=== PATIENT | female | born 1990 | race Caucasian/White ===

== ENCOUNTER 2020-10-09 23:46 | Emergency (ER) | payer OTHER, SELFPAY ==
[2020-10-10] VITALS: BP 130/92; PULSE 86; RESP 20; TEMP 37.6; O2SAT 99; BMI 25.3
--- NOTE | 2020-10-10 00:22 | PC.NURSE ---
SEEN BY DR HERNANDEZ. SINUS RHYTHM ON FUR POLISHER WITH OCCASSIONAL PVCS. PLAN FOR COVID TEST AND DISCHARGE
--- NOTE | 2020-10-10 00:23 | ECG_ITS ---
Test Reason : CHEST PAIN Blood Pressure : / mmHG Vent. Rate : 081 BPM Atrial Rate : 081 BPM P-R Int : 122 ms QRS Dur : 088 ms QT Int : 382 ms P-R-T Axes : 051 049 038 degrees QTc Int : 443 ms Normal sinus rhythm Normal ECG When compared with ECG of 13-JAN-2017 10:13, No significant change was found Referred By: Tan Zhao Electronically Signed By:YAMEL SOARES MD
--- NOTE | 2020-10-10 00:24 | ED.ARRPALP ---
HPI - Arrhythmia/Palpitations General Chief Complaint: Arrhythmia/Palpitations Stated Complaint: Palpitations Time Seen by Provider: 10/10/20 00:17 Source: patient Mode of arrival: ambulatory Limitations: no limitations History of Present Illness HPI narrative: patient history of anxiety PTSD her that 1 of her friend positive with COVID patient denies any symptoms felt anxious and felt premature heart beats occasionally without any dizziness or chest pain complaint: palpitations Onset (ago): day(s) (today) Duration: intermittent Related Data Allergies Allergy/AdvReac Type Severity Reaction Status Date / Time ENVIRONMENTAL Allergy Intermediate WATERY Uncoded 10/10/20 00:00 ITCHY EYES AND TRIGERS ASHTMA environmental Allergy Unknown Blurry Uncoded 10/10/20 00:00 Vision Review of Systems Review of Systems: REVIEW OF SYSTEMS: Pertinent positives and negatives are stated above in the history. GEN: no fevers, chills, fatigue HEENT: no nasal congestion, sore throat, ear pain NEURO: no headache, dizziness, focal weakness PULM: no cough, shortness of breath CV: no chest pain, LE edema ABD: no abdominal pain, nausea, vomiting, diarrhea : no dysuria, urgency, frequency SKIN: no rash ROS otherwise negative x 10 PMFSH Past Medical History Medical History Asthma Major depressive disorder PTSD (post-traumatic stress disorder) Physical Exam Vital Signs: Vital Signs: Last Vital Signs Temp 99.7 F 10/10/20 00:00 Pulse 86 10/10/20 00:00 Resp 20 10/10/20 00:00 BP 130/92 H 10/10/20 00:00 Pulse Ox 99 10/10/20 00:00 Body Mass Index 25.3 Appearance: Alert. Oriented X3. No acute distress. anxious Eyes: Pupils equal, round and reactive to light. ENT: Pharynx normal. Neck: Normal inspection. Neck supple. CVS: Normal heart rate and rhythm. Pulses normal. Respiratory: No respiratory distress. Breath sounds normal. Abdomen: Soft and nontender. Skin: Skin warm and dry. Normal skin color. Normal skin turgor. Extremities: No lower extremity edema. Good range of movement Neuro: Oriented X 3. No motor deficit. No sensory deficit. Course Course Course Narrative: cardiac monitoring showed normal sinus rhythm EKG was normal patient with history of anxiety with recent exposure to patient positive with COVID will do the COVID testing that go home MDM - Arrhythmia/Palpitations Differential Diagnosis Differential diagnosis: Likely palpitations and anxiety ECG Data Attestation: I personally reviewed and interpreted this ECG as follows: ECG interpretation date: 10/09/20 Interpretation: normal sinus rhythm rate 81 normal intervals normal axis no acute ischemia impression normal EKG Discharge Plan Discharge Clinical Impression: Ventricular premature beats, Anxiety Patient Disposition: Home, Self-Care Instructions: Anxiety (ED), Premature Atrial Contractions (ED) Additional Instructions: we did the COVID testing new results will come in 2 days somebody will follow up with you. keep social distancing till then
== END 2020-10-10 00:48 | disposition home or self-care (01) ==
LOC: HO.ED 10-10 00:49
PROVIDERS: Emergency Provider Internal Medicine
DX: I49.3 Ventricular premature depolarization (principal); R00.2 Palpitations; F41.1 Generalized anxiety disorder; F43.0 Acute stress reaction; Z20.828 Contact with and (suspected) exposure to other viral communicable diseases
CPT/HCPCS: 93005; 99283; U0003

== ENCOUNTER 2020-12-01 09:55 | Outpatient (REF) | payer OTHER, SELFPAY ==
[2020-12-02 11:33] LABS: BV Int Neg Control Negative (Negative); BV Int Pos Control Positive (Positive)
[2020-12-02 13:52] LABS: C. trachomatis RNA TMA DETECTED (NOT DETECTED); N. gonorrhoeae RNA TMA NOT DETECTED (NOT DETECTED)
== END 2020-12-01 09:56 | disposition home or self-care (01) ==
LOC: HO.LAB 09:55
PROVIDERS: Visit Provider Advanced Practice Midwife
DX: N76.0 Acute vaginitis (principal); B96.89 Other specified bacterial agents as the cause of diseases classified elsewhere; F17.210 Nicotine dependence, cigarettes, uncomplicated; Z20.2 Contact with and (suspected) exposure to infections with a predominantly sexual mode of transmission
CPT/HCPCS: 36415; 87210; 87480; 87491; 87510; 87591; 87660; 99212

== ENCOUNTER 2020-12-13 11:35 | Outpatient (REF) | payer OTHER, SELFPAY ==
[2020-12-14 08:41] LABS: BV Int Neg Control Negative (Negative); BV Int Pos Control Positive (Positive)
[2020-12-15 07:51] LABS: C. trachomatis RNA TMA DETECTED (NOT DETECTED); N. gonorrhoeae RNA TMA NOT DETECTED (NOT DETECTED)
[2020-12-22 13:26] LABS: HPV mRNA E6/E7 DETECTED
[2020-12-26 13:03] LABS: HPV 16 RNA NOT DETECTED
== END 2020-12-13 11:36 | disposition home or self-care (01) ==
LOC: HO.LAB 11:35
PROVIDERS: Visit Provider Advanced Practice Midwife
DX: Z01.419 Encounter for gynecological examination (general) (routine) without abnormal findings (principal); F17.210 Nicotine dependence, cigarettes, uncomplicated; Z20.2 Contact with and (suspected) exposure to infections with a predominantly sexual mode of transmission
CPT/HCPCS: 36415; 87480; 87491; 87510; 87591; 87624; 87625; 87660; 88141; 88142

== ENCOUNTER 2020-12-15 21:49 | Emergency (ER) | payer OTHER, SELFPAY ==
--- NOTE | 2020-12-15 21:55 | ED.URI ---
HPI - URI/Sore Throat General Chief Complaint: Asthma Stated Complaint: Covid symptoms Time Seen by Provider: 12/15/20 21:55 Source: patient Mode of arrival: ambulatory Limitations: no limitations History of Present Illness HPI Narrative: 30 yo female with asthma here with 2 days of URI symptoms and her daughter has COVID, she used all of her rescue inhaler as well MD elicited complaint: cough, sore throat, rhinorrhea and nasal congestion Pertinent past history: asthma Onset (ago): day(s) (2) Consistency: constant Severity: moderate Description of mucous: clear Able to tolerate fluids by mouth: Yes Exacerbating factors: nothing Relieving factors: nothing Context: sick contacts (daughter has COVID) Associated symptoms: chills, myalgias, headache, rhinorrhea, sore throat, cough and shortness of breath Treatments prior to arrival: other (used her INH) Related Data Home Medications Medication Instructions Recorded Confirmed albuterol sulfate 90 mcg/actuation 2 inh INHALATION Q6H PRN 12/01/20 breath activated powder inhaler fluticasone furoate 200 1 inh INHALATION Q24H 12/01/20 mcg-vilanterol 25 mcg/dose inhalation powder montelukast 10 mg tablet 10 mg PO DAILY 12/13/20 Previous Rx's Medication Instructions Recorded metronidazole 0.75 % vaginal gel 1 appful VAGINAL BID 5 Days #70 g 12/01/20 metronidazole 500 mg tablet 500 mg PO BID 7 Days #14 tab 12/07/20 azithromycin 500 mg tablet 1,000 mg PO DAILY 1 Days #2 tab 12/08/20 fluconazole 150 mg tablet 150 mg PO DAILY #1 tab 12/14/20 metronidazole 0.75 % vaginal gel 1 appful VAGINAL BEDTIME 5 Days 12/14/20 #70 g prednisone 40 mg PO DAILY 4 Days #8 tab 12/15/20 Allergies Allergy/AdvReac Type Severity Reaction Status Date / Time ENVIRONMENTAL Allergy Intermediate WATERY Uncoded 10/10/20 00:00 ITCHY EYES AND TRIGERS ASHTMA environmental Allergy Unknown Blurry Uncoded 10/10/20 00:00 Vision Review of Systems Review of Systems: Constitutional : no Fever, positive Chills, positive fatigue, positive Malaise ENT/Mouth : positive sore throat, positive runny nose Eyes: No Discharge Cardiovascular : No Chest Pain, pos SOB Respiratory : pos Cough, No Sputum Gastrointestinal : No Nausea, No Vomiting, No Diarrhea Genitourinary : No Dysuria, No Urinary Frequency Musculoskeletal : positive Myalgia Skin : No rash Neuro :pos Headache All other systems reviewed and are negative [facility], [facility] Past Medical History Attestation statement: The following information was validated with the patient. Medical History Asthma Major depressive disorder PTSD (post-traumatic stress disorder) Surgical History H/O tubal ligation Hx of tonsillectomy Family History Family History Paternal Grandfather Colon cancer Mother HTN (hypertension) Hyperlipidemia Depression Maternal Grandfather Lung cancer Father Asthma Social History Social History Alcohol intake: current Alcohol intake frequency: holidays/special occasions only Smoking Status: Current every day smoker Tobacco Type: Cigar and Cigarette Packs Per Day: 1 Advance Directives: No Advance Directives Information Provided: No Gender identity: female Physical Exam Vital Signs: Vital Signs: Last Vital Signs Temp 98.8 F 12/15/20 22:00 Pulse 90 12/15/20 22:00 Resp 18 12/15/20 22:00 BP 155/82 H 12/15/20 22:00 Pulse Ox 99 12/15/20 22:00 Body Mass Index 22.4 Appearance: Alert. Oriented X3. No acute distress. Eyes: Pupils equal, round and reactive to light. ENT: Pharynx normal. Neck: Normal inspection. Neck supple. CVS: Normal heart rate and rhythm. Pulses normal. Respiratory: No respiratory distress. Breath sounds normal. Abdomen: Soft and nontender. Skin: Skin warm and dry. Normal skin color. Normal skin turgor. Extremities: No lower extremity edema. No calf ttp Neuro: Oriented X 3. No motor deficit. No sensory deficit. Course Course Course Narrative: can be safely DC at this time, likely COVID given exposure and symptoms MDM - URI/Sore Throat MDM Narrative Medical decision making narrative: 30 yo female with asthma here with URI symptoms and states she has had to use her inhaler at this time will obtain COVID swab, CXR, given rescue INH here and start on oral steroids - dispo per results and findings. Lab Data Labs: Lab Results 12/15/20 Range/Units 22:09 Coronavirus (PCR) NEGATIVE (Negative) Influenza Type A (PCR) NEGATIVE (Negative) Influenza Type B (PCR) NEGATIVE (Negative) RSV RNA Qual (PCR) NEGATIVE (Negative) Discharge Plan Discharge Clinical Impression: Acute viral syndrome Patient Disposition: Home, Self-Care Instructions: COVID-19 (Coronavirus Disease 2019) (ED) Additional Instructions: return to ED for any worsening symptoms or concerns YOUR CHEST XRAY AND COVID SWAB WERE NEGATIVE BUT GIVEN YOUR SYMPTOMS AND EXPOSURE YOU LIKELY HAVE COVID WILL TREAT SUCH Prescriptions: New prednisone 20 mg tablet 40 mg PO DAILY 4 Days Qty: 8 RF: 0 No Action metronidazole [Flagyl] 500 mg tablet 500 mg PO BID 7 Days Qty: 14 RF: 0 azithromycin [Zithromax] 500 mg tablet 1,000 mg PO DAILY 1 Days Qty: 2 RF: 0 fluconazole [Diflucan] 150 mg tablet 150 mg PO DAILY Qty: 1 RF: 0 metronidazole [Metrogel Vaginal] 0.75 % gel 1 appful vaginal BEDTIME 5 Days Qty: 70 RF: 0 Breo Ellipta 200-25 mcg/dose blister with device 1 inh inhalation Q24H RF: 0 albuterol sulfate 90 mcg/actuation aerosol powdr breath activated 2 inh inhalation Q6H PRNRF: 0 metronidazole [Metrogel Vaginal] 0.75 % gel 1 appful vaginal BID 5 Days Qty: 70 RF: 5 montelukast 10 mg tablet 10 mg PO DAILY RF: 0 Stand Alone Forms: Work/School Release
[2020-12-15 22:00] VITALS: BP 155/82; PULSE 90; RESP 18; TEMP 37.1; O2SAT 99; BMI 22.4
--- NOTE | 2020-12-15 22:01 | XR_ITS ---
EXAMINATION: XR CHEST CLINICAL INFORMATION: Dyspnea. COMPARISON: None TECHNIQUE: Frontal view of the chest was obtained. FINDINGS: No significant abnormality is noted involving the heart, lungs, mediastinum, bony thorax or soft tissues. XR/XR chest 1V IMPRESSION: No acute cardiopulmonary process.
[2020-12-15] MEDS: predniSONE 20 MG TABLET 40 MG PO (22:11)
[2020-12-15] MEDS: Albuterol Sulfate 90 MCG 8 GM INHALER 2 PUFF INHALE (22:11)
[2020-12-15 23:06] LABS: Influenza A PCR NEGATIVE (Negative); Influenza B PCR NEGATIVE (Negative); Resp Syncy Virus RNA Qual PCR NEGATIVE (Negative); SARS COV2 PCR INHOUSE NEGATIVE (Negative)
[2020-12-15 23:30] VITALS: BP 124/74; PULSE 84; RESP 16; TEMP 36.9; O2SAT 99
== END 2020-12-16 00:05 | disposition home or self-care (01) ==
PROVIDERS: Emergency Provider Emergency Medicine
DX: B34.9 Viral infection, unspecified (principal); Z20.822 Contact with and (suspected) exposure to COVID-19; F17.210 Nicotine dependence, cigarettes, uncomplicated; J45.909 Unspecified asthma, uncomplicated; Z79.899 Other long term (current) drug therapy
CPT/HCPCS: 0241U; 36415; 71045; 99284

== ENCOUNTER 2021-01-01 10:06 | Outpatient (REF) | payer OTHER, SELFPAY | END 2021-01-01 10:07 | disposition home or self-care (01) | LOC: HO.LAB 10:06 | PROVIDERS: Visit Provider Obstetrics & Gynecology | DX: N87.9 Dysplasia of cervix uteri, unspecified (principal) | CPT/HCPCS: 57454; 88305; 88341; 88342; 88344; 88360 ==

== ENCOUNTER → 2021-01-09 11:46 | Outpatient (BNVA) | payer OTHER, SELFPAY | PROVIDERS: Visit Provider Obstetrics & Gynecology ==

== ENCOUNTER 2021-01-23 23:19 | Emergency (ER) | payer OTHER, SELFPAY ==
[2021-01-23 23:56] VITALS: BP 133/77; PULSE 85; RESP 16; TEMP 36.7; O2SAT 99; BMI 22.1
--- NOTE | 2021-01-24 00:01 | PC.NURSE ---
at bedside for primary eval.
--- NOTE | 2021-01-24 00:15 | ED_ITS ---
HPI - Skin/Abscess/Foreign Bdy General Chief complaint: Skin/Abscess/Foreign Body Stated complaint: Abscess Time Seen by Provider: 01/23/21 23:50 Source: patient Mode of arrival: ambulatory Limitations: no limitations History of Present Illness HPI narrative: Patient comes emergency room complaining of an abscess in the left labia. Patient states she started feeling some discomfort intermitently since october and has been having multiple abcesses in the same area and has been popping them. The last 3 days, pt states that she noticed it getting bigger warm, tender, and increased labial swelling, pt has been trying to pop this one without success. Patient denies fever or chills. No vaginal discharge, no fever chills. Patient states that over last few months, she has had several similar abscesses around that same area, she is usually able to pop them herself by applying a lot of pressure. Patient popped an abcess yesterday that was above the affected area. Last week she popped an abcess in the per ineum on the left side as well. Pt states that she has been trying to pop this abcess by applying significant pressure. Patient states that she does not suspect having any exposure to STDs Related Data Home Medications Medication Instructions Recorded Confirmed albuterol sulfate 90 mcg/actuation 2 inh INHALATION Q6H PRN 12/01/20 breath activated powder inhaler fluticasone furoate 200 1 inh INHALATION Q24H 12/01/20 mcg-vilanterol 25 mcg/dose inhalation powder montelukast 10 mg tablet 10 mg PO DAILY 12/13/20 Previous Rx's Medication Instructions Recorded metronidazole 0.75 % vaginal gel 1 appful VAGINAL BID 5 Days #70 g 12/01/20 metronidazole 500 mg tablet 500 mg PO BID 7 Days #14 tab 12/07/20 azithromycin 500 mg tablet 1,000 mg PO DAILY 1 Days #2 tab 12/08/20 fluconazole 150 mg tablet 150 mg PO DAILY #1 tab 12/14/20 metronidazole 0.75 % vaginal gel 1 appful VAGINAL BEDTIME 5 Days 12/14/20 #70 g prednisone 40 mg PO DAILY 4 Days #8 tab 12/15/20 cephalexin [Keflex] 750 mg PO BID #14 cap 01/24/21 doxycycline hyclate 100 mg PO BID #14 cap 01/24/21 tramadol 50 mg PO BID PRN #7 tab 01/24/21 Allergies Allergy/AdvReac Type Severity Reaction Status Date / Time ENVIRONMENTAL Allergy Intermediate WATERY Uncoded 01/09/21 11:48 ITCHY EYES AND TRIGERS ASHTMA environmental Allergy Unknown Blurry Uncoded 01/09/21 11:48 Vision Review of Systems Review of Systems: Constitutional : No Weight loss, No Fever, No Chills, No Night Sweats, No Fatigue, No Malaise ENT/Mouth : No Hearing loss, No Ear Pain, No Nasal Congestion, No Sinus Pain, No Hoarseness, No sore throat, No Rhinorrhea, No Swallowing Difficulty Eyes: No Eye Pain, No Swelling, No Redness, No Foreign Body, No Discharge, No Vision Changes Cardiovascular : No Chest Pain, No SOB, No Dyspnea on Exertion, No Orthopnea, No Edema, No Palpitations Respiratory : No Cough, No Sputum, No Wheezing, No Smoke Exposure, No Dyspnea Gastrointestinal : No Nausea, No Vomiting, No Diarrhea, No Constipation, No abdominal Pain, No Hematochezia, No Melena Genitourinary : no irregular bleeding, No Dysuria, No Urinary Frequency, No Hematuria, No Urinary Incontinence, No Urgency, No Flank Pain, No Urinary Flow Changes, No Hesitancy. Complaining of a growing abscess in her left labia Musculoskeletal : No joint pain, No Myalgias, No Joint Swelling Skin : Over the last weeks, reporting multiple abscesses the patient has applied pressure and popped all on the left side Neuro : No Weakness, No Numbness, No Paresthesias, No Loss of Consciousness, No Dizziness, No Headache Psych : No Anxiety/Panic, No Depression, No SI/HI/AH/VH, No Social Issues, Heme/Lymph: No Bruising, No Bleeding,No Lymphadenopathy Endocrine : No Polyuria, No Polydipsia, No Temperature Intolerance PMFSH Past Medical History Medical History Asthma Major depressive disorder PTSD (post-traumatic stress disorder) Surgical History H/O tubal ligation Hx of tonsillectomy Family History Family History Paternal Grandfather Colon cancer Mother HTN (hypertension) Hyperlipidemia Depression Maternal Grandfather Lung cancer Father Asthma Social History Social History Alcohol intake: unknown Smoking Status: Smoker, status unknown Tobacco Type: Cigar and Cigarette Packs Per Day: 1 Advance Directives: No Gender identity: female Physical Exam Vital Signs: Vital Signs: Last Vital Signs Temp 98.0 F 01/23/21 23:56 Pulse 78 01/24/21 01:01 Resp 16 01/24/21 01:01 BP 139/94 H 01/24/21 01:01 Pulse Ox 99 01/24/21 01:01 Body Mass Index 22.1 Appearance: Alert. Oriented X3. No acute distress. Eyes: Pupils equal, round and reactive to light. ENT: Pharynx normal. Neck: Normal inspection. Neck supple. No lymph nodes noted. No crepitus CVS: Normal heart rate and rhythm. Pulses normal. Normal S1 and S2 Respiratory: No respiratory distress. Breath sounds normal. No Wheezing. No rales Abdomen: Soft and nontender. No rigidity. No distention. good BS x4 : induration and mild redness in the superior and exterior aspect of the labia majora, not a Bartholin's cyst. On bedside ultrasound, there is 0.5 cm abscess no vascularity on doppler Skin: Skin warm and dry. see above Extremities: No lower extremity edema. No Lacerations. No Rash Neuro: Oriented X 3. No motor deficit. No sensory deficit. Moving all exterm ities. No slurred speech. Course Course Course Narrative: I discussed with the patient that given the size of the abscess, at this time we can start her on antibiotics, and have her follow up with her PCP or obgyn. If we do an I&D, it is unlikely that we will get any significant drainage out. Patient stated that she wants the needle aspiration done. I discussed with the patient that we could attempt draining it with a needle. The affected area was injected with 2% lidocaine, 1 mL. Right over the incision site, an 20 gauge needle was used for aspiration, no fluid obtained. Procedures Abscess I/D Site: other (Left labia) Side (if applicable): left Local Anesthetic: lidocaine 2% Amount of anesthesia used (mL): 1 Technique: needle aspiration Amount of fluid expressed (mL): 0 Sent for culture/gram staining?: No Irrigation: No Packing used?: none Complications: other Discharge Plan Discharge Clinical Impression: Labial abscess Patient Disposition: Home, Self-Care Instructions: Abscess (ED) Additional Instructions: Please follow-up with your primary care physician tomorrow. If you have any worsening or new symptoms, please return to the emergency room or call 911 Prescriptions: New doxycycline hyclate 100 mg capsule 100 mg PO BID Qty: 14 RF: 0 cephalexin [Keflex] 750 mg capsule 750 mg PO BID Qty: 14 RF: 0 tramadol 50 mg tablet 50 mg PO BID PRN (Reason: pain) Qty: 7 RF: 0 No Action metronidazole [Flagyl] 500 mg tablet 500 mg PO BID 7 Days Qty: 14 RF: 0 azithromycin [Zithromax] 500 mg tablet 1,000 mg PO DAILY 1 Days Qty: 2 RF: 0 fluconazole [Diflucan] 150 mg tablet 150 mg PO DAILY Qty: 1 RF: 0 metronidazole [Metrogel Vaginal] 0.75 % gel 1 appful vaginal BEDTIME 5 Days Qty: 70 RF: 0 prednisone 20 mg tablet 40 mg PO DAILY 4 Days Qty: 8 RF: 0 Breo Ellipta 200-25 mcg/dose blister with device 1 inh inhalation Q24H RF: 0 albuterol sulfate 90 mcg/actuation aerosol powdr breath activated 2 inh inhalation Q6H PRNRF: 0 metronidazole [Metrogel Vaginal] 0.75 % gel 1 appful vaginal BID 5 Days Qty: 70 RF: 5 montelukast 10 mg tablet 10 mg PO DAILY RF: 0 Interventions: ED Discharge Assessment Last Done: 01/24/21 01:30 Discharge Date/Time: 01/24/21 01:44
[2021-01-24] MEDS: Lidocaine HCl 2 % MPF 5 ML VIAL INFILTRATI (00:38)
--- NOTE | 2021-01-24 00:39 | PC.NURSE ---
MD at bedside with U/S, trying to suction abscess. Pt tolerating the procedure well, aware of plan to DC home with ABX.
[2021-01-24] MEDS: cephALEXin 500 MG CAPSULE PO (01:00)
[2021-01-24 01:01] VITALS: BP 139/94; PULSE 78; RESP 16; O2SAT 99
[2021-01-24] MEDS: traMADoL HCL 50 MG TABLET PO (01:05)
--- NOTE | 2021-01-24 01:06 | PC.NURSE ---
Medicated per MAR. VSS. Awaiting DC paperwork.
== END 2021-01-24 01:44 | disposition home or self-care (01) ==
PROVIDERS: Emergency Provider Emergency Medicine
DX: N76.4 Abscess of vulva (principal); Z79.899 Other long term (current) drug therapy; F17.210 Nicotine dependence, cigarettes, uncomplicated; Z71.6 Tobacco abuse counseling
CPT/HCPCS: 56405; 99284

== ENCOUNTER 2021-01-26 02:43 | Emergency (ER) | payer OTHER, SELFPAY ==
[2021-01-26 02:52] VITALS: BP 120/80; PULSE 85; RESP 14; TEMP 36.5; O2SAT 100; BMI 22.1
--- NOTE | 2021-01-26 03:35 | ED_ITS ---
HPI - General Adult General Chief complaint: Upper Respiratory Symptoms Stated complaint: Sore Throat Time Seen by Provider: 01/26/21 03:24 Source: patient Mode of arrival: ambulatory Limitations: no limitations History of Present Illness HPI narrative: 30-year-old female who presents emergency department for evaluation of a sore throat. She states that her symptoms began yesterday morning around 6:00 a.m.. She states that the pain persisted throughout the day yesterday and got worse this morning. She states the pain is a constant, sharp pain which is worse with eating and with swallowing. The pain is moderate to severe in intensity. She states that she has had occasional cough and occasional rhinorrhea. She denied fever, chills, chest pain, shortness of breath or abdominal pain. She states that she looked in her mouth and noticed white patches on the back of her mouth. She states that she has gotten strep throat frequently in the past and she believe she has strep throat again. Related Data Home Medications Medication Instructions Recorded Confirmed albuterol sulfate 90 mcg/actuation 2 inh INHALATION Q6H PRN 12/01/20 breath activated powder inhaler fluticasone furoate 200 1 inh INHALATION Q24H 12/01/20 mcg-vilanterol 25 mcg/dose inhalation powder montelukast 10 mg tablet 10 mg PO DAILY 12/13/20 Previous Rx's Medication Instructions Recorded metronidazole 0.75 % vaginal gel 1 appful VAGINAL BID 5 Days #70 g 12/01/20 metronidazole 500 mg tablet 500 mg PO BID 7 Days #14 tab 12/07/20 azithromycin 500 mg tablet 1,000 mg PO DAILY 1 Days #2 tab 12/08/20 fluconazole 150 mg tablet 150 mg PO DAILY #1 tab 12/14/20 metronidazole 0.75 % vaginal gel 1 appful VAGINAL BEDTIME 5 Days 12/14/20 #70 g prednisone 40 mg PO DAILY 4 Days #8 tab 12/15/20 cephalexin [Keflex] 750 mg PO BID #14 cap 01/24/21 doxycycline hyclate 100 mg PO BID #14 cap 01/24/21 tramadol 50 mg PO BID PRN #7 tab 01/24/21 penicillin V potassium 500 mg PO TID 10 Days #30 tab 01/26/21 Allergies Allergy/AdvReac Type Severity Reaction Status Date / Time ENVIRONMENTAL Allergy Intermediate WATERY Uncoded 01/09/21 11:48 ITCHY EYES AND TRIGERS ASHTMA environmental Allergy Unknown Blurry Uncoded 01/09/21 11:48 Vision Review of Systems Review of Systems: Yes all other systems are reviewed and are negative Neurologic: Denies Abnormal speech present [facility] Past Medical History [facility] Narrative: The patient smokes 1/2 pack of cigarettes per day x8 years, she states she rarely drinks alcohol, she denies drug use. Medical History Asthma Major depressive disorder PTSD (post-traumatic stress disorder) Surgical History H/O tubal ligation Hx of tonsillectomy Family History Family History Paternal Grandfather Colon cancer Mother HTN (hypertension) Hyperlipidemia Depression Maternal Grandfather Lung cancer Father Asthma Social History Social History Alcohol intake: unknown Smoking Status: Smoker, status unknown Tobacco Type: Cigar and Cigarette Packs Per Day: 1 Advance Directives: No Gender identity: female Physical Exam Vital Signs: Vital Signs: Last Vital Signs Temp 97.7 F 01/26/21 02:52 Pulse 85 01/26/21 02:52 Resp 14 01/26/21 02:52 BP 120/80 01/26/21 02:52 Pulse Ox 100 01/26/21 02:52 Body Mass Index 22.1 Const: General: cooperative and healthy appearing Orientation/consciousness: oriented to person and oriented to place Limitations: no limitations HENMT: Head: Yes normal to inspection, Yes normocephalic and Yes atraumatic Ears: external ears normal General nose exam: Normal external nose present Face and sinus: Yes normal facial exam Mouth: Normal oral and palatal mucosa present Throat: Yes tonsils normal, Yes uvula midline, No peritonsillar mass and Yes posterior oropharynx abnormal (Posterior exudates) Eyes: Periorbital: periorbital findings normal Eyelids: Yes eyelids normal Conjunctivae: conjunctivae normal Sclerae: sclerae normal Corneas: corneas normal Pupils: Equal, round and reactive pupils present Direct Ophthalmoscopy: normal light reflex Neck: Neck: Yes full ROM, Yes no lymphadenopathy, Yes no meningeal signs, Yes trachea midline and Yes supple Chest: Chest palpation & inspection: normal inspection of the chest and normal palpation of entire chest wall Resp: Effort & Inspection: normal respiratory effort and able to speak in complete sentences Auscultation: clear to auscultation bilaterally Cardio: Rate: regular rate Rhythm: regular rhythm Heart sounds: S1 normal heart sound present, S2 normal heart sound present and no murmurs GI: Inspection: Yes normal to inspection Palpation (GI): Soft to palpation, nontender, no guarding, not rigid and No hepatosplenomegaly present : General: Yes no CVA tenderness Back/Spine/Pelvis: Back: no CVA tenderness Cervical Spine: normal cervical lordosis Thoracic/Lumbar Spine: thoracic and lumbar spine normal to inspection Skin: Lesions: no lesions Rashes: no rashes Wounds: no wounds Neuro: General: oriented to person, oriented to place and no meningeal signs Cranial nerves: Yes Equal, round and reactive pupils present Cognition (Neuro): normal cognition Speech: No Abnormal speech present Motor exam (neuro): 5/5 motor strength present throughout Extrem: General: Yes normal to inspection and Yes full ROM Psych: Appearance: well kempt Mental Status: mental status grossly normal Speech and movement: Normal speech and movement present Affect: normal affect Attitude: cooperative Thought process: Normal thought process present Thought content: Normal thought content present Course Course Course Narrative: 30-year-old female who presents emergency department for evaluation of sore throat which began yesterday morning and got progressively worse. Patient's physical examination did reveal posterior exudates of was was unremarkable. The patient's presentation is consistent with acute pharyngitis most likely caused by streptococcal infection. I offered testing verses treatment with no testing at this time the patient wants to be treated and does not want a rapid strep test or throat culture. The patient was started on penicillin 500 mg 3 times a day for 10 days, she was advised to take ibuprofen Tylenol for pain. She was given her 1st dose of penicillin 500 mg orally in the emergency department and ibuprofen 600 mg orally for her pain. She was given verbal and printed instructions discharged home. Discharge Plan Discharge Clinical Impression: Acute streptococcal pharyngitis Patient Disposition: Home, Self-Care Instructions: Strep Throat (ED) Additional Instructions: Your presentation and examination are consistent with strep throat. Take penicillin 500 mg pills, 1 pill 3 times a day for 10 days. Make sure you complete the entire 10 days. Take ibuprofen 200 mg pills, 3 pills every 6 hours as needed for pain. Take Tylenol (acetaminophen) 500 mg pills, 2 pills every 4 to 6 hours as needed for pain. Follow-up with your doctor in 2 days. Please return to the emergency department if your symptoms get worse or if you develop any symptoms that are concerning to you. Prescriptions: New penicillin V potassium 500 mg tablet 500 mg PO TID 10 Days Qty: 30 RF: 0 No Action metronidazole [Flagyl] 500 mg tablet 500 mg PO BID 7 Days Qty: 14 RF: 0 azithromycin [Zithromax] 500 mg tablet 1,000 mg PO DAILY 1 Days Qty: 2 RF: 0 fluconazole [Diflucan] 150 mg tablet 150 mg PO DAILY Qty: 1 RF: 0 metronidazole [Metrogel Vaginal] 0.75 % gel 1 appful vaginal BEDTIME 5 Days Qty: 70 RF: 0 doxycycline hyclate 100 mg capsule 100 mg PO BID Qty: 14 RF: 0 cephalexin [Keflex] 750 mg capsule 750 mg PO BID Qty: 14 RF: 0 tramadol 50 mg tablet 50 mg PO BID PRN (Reason: pain) Qty: 7 RF: 0 prednisone 20 mg tablet 40 mg PO DAILY 4 Days Qty: 8 RF: 0 Breo Ellipta 200-25 mcg/dose blister with device 1 inh inhalation Q24H RF: 0 albuterol sulfate 90 mcg/actuation aerosol powdr breath activated 2 inh inhalation Q6H PRNRF: 0 metronidazole [Metrogel Vaginal] 0.75 % gel 1 appful vaginal BID 5 Days Qty: 70 RF: 5 montelukast 10 mg tablet 10 mg PO DAILY RF: 0
[2021-01-26] MEDS: Penicillin V Potassium 250 MG TABLET 500 MG PO (03:38)
[2021-01-26] MEDS: Ibuprofen 600 MG TABLET PO (03:38)
== END 2021-01-26 03:48 | disposition home or self-care (01) ==
PROVIDERS: Emergency Provider Emergency Medicine Emergency Medical Services
DX: J02.0 Streptococcal pharyngitis (principal); J45.909 Unspecified asthma, uncomplicated; F17.210 Nicotine dependence, cigarettes, uncomplicated
CPT/HCPCS: 99283

== ENCOUNTER → 2021-02-06 10:41 | Outpatient (BNVA) | payer OTHER, SELFPAY | PROVIDERS: Visit Provider Obstetrics & Gynecology | DX: D06.9 Carcinoma in situ of cervix, unspecified (principal) | CPT/HCPCS: 99212 ==

== ENCOUNTER 2021-02-08 08:05 | Day surgery (SDC) | payer OTHER, SELFPAY ==
[2021-02-01 14:12] VITALS: BMI 22.1
--- NOTE | 2021-02-07 09:11 | HO.ANESPROP2 ---
Documented by User: Ban Dockery 02/07/21 09:12 HPI - Anesthesia Eval Consult details Narrative: 30yo F for Cold Knife Cone Procedure PMFSH Active Problems Active Problems: All Active Problems (Updated 02/01/21 @ 14:13 by Lisa Allen) Bacterial vaginosis (Acute) Potential exposure to STD (Acute) Well woman exam with routine gynecological exam (Acute) Chlamydia infection (Acute) Past Medical History Medical History Asthma Cervical intraepithelial neoplasia grade III with severe dysplasia History of strep sore throat Major depressive disorder PTSD (post-traumatic stress disorder) Family History Family History Paternal Grandfather Colon cancer Mother HTN (hypertension) Hyperlipidemia Depression Maternal Grandfather Lung cancer Father Asthma Surgical History Surgical History H/O tubal ligation Hx of tonsillectomy Social History Social History Alcohol intake: unknown Smoking Status: Smoker, status unknown Tobacco Type: Cigar and Cigarette Packs Per Day: 1 Advance Directives Information Provided: No Gender identity: female Meds Allergies Allergy/AdvReac Type Severity Reaction Status Date / Time ENVIRONMENTAL Allergy Intermediate WATERY Uncoded 02/06/21 11:08 ITCHY EYES AND TRIGERS ASHTMA Home Medications Medication Instructions Recorded Confirmed Last Taken Type albuterol sulfate 90 mcg/actuation 2 inh INHALATION Q6H PRN 12/01/20 02/01/21 Unknown History breath activated powder inhaler fluticasone furoate 200 1 inh INHALATION Q24H 12/01/20 02/01/21 Unknown History mcg-vilanterol 25 mcg/dose inhalation powder montelukast 10 mg tablet 10 mg PO DAILY 12/13/20 02/01/21 Unknown History Exam Exam Date and Time: February 07, 2021 0911 Height,Weight and Vital Signs: Height 5 ft 3 in Weight 56.699 kg Narrative Narrative: EKG 09/2020 Vent. Rate : 081 BPM Atrial Rate : 081 BPM P-R Int : 122 ms QRS Dur : 088 ms QT Int : 382 ms P-R-T Axes : 051 049 038 degrees QTc Int : 443 ms Normal sinus rhythm Normal ECG When compared with ECG of 13-JAN-2017 10:13, No significant change was found Assessment and Plan Assessment Anesthesia Assessment: Chart Reviewed Documented by User: Anna Toure 02/08/21 10:05 PMFSH Past Medical History Medical History Asthma Cervical intraepithelial neoplasia grade III with severe dysplasia History of strep sore throat Major depressive disorder PTSD (post-traumatic stress disorder) Family History Family History Paternal Grandfather Colon cancer Mother HTN (hypertension) Hyperlipidemia Depression Maternal Grandfather Lung cancer Father Asthma Surgical History Surgical History H/O tubal ligation Hx of tonsillectomy Social History Social History Alcohol intake: unknown Smoking Status: Smoker, status unknown Tobacco Type: Cigar and Cigarette Packs Per Day: 1 Advance Directives Information Provided: No Gender identity: female Meds Allergies Allergy/AdvReac Type Severity Reaction Status Date / Time ENVIRONMENTAL Allergy Intermediate WATERY Uncoded 02/06/21 11:08 ITCHY EYES AND TRIGERS ASHTMA Home Medications Medication Instructions Recorded Confirmed Last Taken Type albuterol sulfate 90 mcg/actuation 2 inh INHALATION Q6H PRN 12/01/20 02/01/21 Unknown History breath activated powder inhaler fluticasone furoate 200 1 inh INHALATION Q24H 12/01/20 02/01/21 Unknown History mcg-vilanterol 25 mcg/dose inhalation powder montelukast 10 mg tablet 10 mg PO DAILY 12/13/20 02/01/21 Unknown History Exam Airway Mallampati Class: I TM Dist: >3cm Neck ROM: Full Loose/Missing/Broken Teeth: No Heart: RRR Lungs: CTA Assessment and Plan Assessment Anesthesia Assessment: Anesthesia Plan Discussed and Chart Reviewed Final Anesthetic Review NPO: Yes ASA Class: II Final Preanesthetic Review: Meds/Allgs Chart Reviewed, Consent Obtained/Reviewed and Anes Risks/Benef Reviewed Patient Risk: Low Procedure Risk: Low Anesthetic Plan Anesthetic Plan: GA Disposition: Standard PACU
[2021-02-08] VITALS (27 sets, daily range): BP systolic 114–139; BP diastolic 52–93; PULSE 67–104; RESP 8–22; TEMP 36.2–36.9; O2SAT 98–100; BMI 22.3
[2021-02-08] MEDS: Lactated Ringers 1,000 ML 100 ML IVCONT (08:38)
--- NOTE | 2021-02-08 08:58 | MHC.SHP ---
Pre-Procedural Eval Section A The patient is an INPATIENT: No Changes since office visit: No Cold of Flu in the past 2 weeks, No New Medical Problems, No Changes in Medication and No Patient answered all questions The History & Physical has been completed within 30 days and I have reviewed it.: Yes Section B Chief Complaint: HSIL Allergies: Allergies Allergy/AdvReac Type Severity Reaction Status Date / Time ENVIRONMENTAL Allergy Intermediate WATERY Uncoded 02/06/21 11:08 ITCHY EYES AND TRIGERS ASHTMA Plan I have reviewed the history and physical and performed a pertinent physical examination on my patient. No changes have occurred unless specified.
[2021-02-08 09:34] LABS: HCG Quantitative < 2 mIU/mL
--- NOTE | 2021-02-08 11:22 | P.OP_ITS ---
Operative Note Operative Note Date of Service: 02/08/21 Narrative: Ms. Toni Smith is a 30 year old with severe cervical dysplasia (TEJA 2-3) on endocervical curettage at time of her colposcopy done for HSIL, HR HPV+ (16/18/45 negative) pap smear. She presents today for cold knife cone biopsy. Surgical Risks: The patient was informed of the risks and benefits of a cold knife cone biopsy. Risks included but were not limited to bleeding, infection, injury to the vulva, vagina, or cervix, and uterus with possible need for further surgery; increased risk of delivery in any future . The patient expressed understanding of the risks involved, all questions were answered, and the patient consented to the procedure. She has previously had a bilateral tubal ligation as she desires no further childbearing. The patient was taken to the operating room where a time out was confirmed to confirm correct patient and correct procedure. Adequate general anesthesia was established. The patient was then positioned on the operating table in the dorsal lithotomy position with her legs supported using stirrups. All pressure points were padded and a warm blanket was placed to maintain control of core body temperature. The patient voided just prior to the procedure. A bivalve speculum was then inserted into the vagina. The anterior lip of the cervix was visualized and grasped using a single tooth tenaculum. 24 u of 0.5 U/mL vasopressin was injected circumferentially in the cervix just lateral to the planned biopsy. The scalpel was then used circumferentially with a sawing motion to take a cone biopsy approximately 3cm deep. The specimen was tagged with suture at 12 o'clock. The specimen was sent to pathology. Bovie electrocautery was then used covering all cut surfaces to achieve hemostasis. Monsel's solution was then applied. Minimal blood loss was noted. The single- tooth tenaculum was removed from the anterior lip of the cervix and hemostasis was also noted at the tenaculum puncture sites. Sterile packing was soaked in monsel's solution and packed into the cervix, leaving a tail hanging out of the vagina for easy removal. Good hemostasis was noted. The speculum was then removed from the vagina. At the end of the procedure, all needle, sponge, and instrument counts were noted to be correct x2. The patient was transferred to the recovery room in stable condition.
[2021-02-08] MEDS: oxyCODONE HCl Immed Release 5 MG TABLET 10 MG PO (11:36)
[2021-02-08] MEDS: fentaNYL citrate/PF 100 MCG/2 ML VIAL 50 MCG IVPUSH ×4 (11:41→12:10)
[2021-02-08 14:43] LABS: Hematocrit 34.3 % (37-47); Hemoglobin 11.2 g/dl (12.0-16.0); Mean Corpuscular HGB Conc 32.7 g/dl (31.0-35.0); Mean Corpuscular Hemoglobin 29.6 pg (27.0-33.0); Mean Corpuscular Volume 90.7 fL (80-98); Mean Platelet Volume 10.7 fL (9.4-12.3); Platelet Count 181 X10*3/uL (160-400); Red Blood Count 3.78 X10*6/uL (4.20-5.50); Red Cell Distribution Width 13.2 % (11.0-16.0); White Blood Count 9.7 X10*3/uL (4.8-10.8)
[2021-02-08 14:47] LABS: Hematocrit 34.3 % (37-47); Hemoglobin 11.2 g/dl (12.0-16.0); Mean Corpuscular HGB Conc 32.7 g/dl (31.0-35.0); Mean Corpuscular Hemoglobin 29.6 pg (27.0-33.0); Mean Corpuscular Volume 90.7 fL (80-98); Mean Platelet Volume 10.7 fL (9.4-12.3); Platelet Count 181 X10*3/uL (160-400); Red Blood Count 3.78 X10*6/uL (4.20-5.50); Red Cell Distribution Width 13.2 % (11.0-16.0); White Blood Count 9.7 X10*3/uL (4.8-10.8)
--- NOTE | 2021-02-08 15:29 | W.PM.OPN ---
Operative Note Operative Note Date of Service: 02/08/21 Narrative: Ms. Toni Smith is a 30yo on POD#0 s/p cold knife cone biopsy who was found to be soaking her alan pads in PACU and was taken back to the OR for exam under anesthesia. The patient was taken to the operating room where a time out was confirmed to confirm correct patient and correct procedure. Adequate general anesthesia was established. The monsel's soaked packing previously placed in the vagina and 195cc of blood clot was manually evacuated from the vagina. The patient was then positioned on the operating table in the dorsal lithotomy position with her legs supported using stirrups. All pressure points were padded and a Alejandrina hugger was placed to maintain control of core body temperature. The patient was then prepped and draped in the usual sterile fashion. A weighted speculum was then inserted into the vagina and the cervix visualized. Bleeding was noted to be brisk from the posterior cervix. Suction was used to evacuate blood and bovie electrocautery was used to achieve hemostasis. After using the bovie electrocautery, no active bleeding was noted, even after waiting a couple of minutes. Monsel's solution was then applied with continued hemostasis noted. 20cc 2% lidocaine was then injected as a paracervical block at 4 and 7 o'clock. Bleeding was then again noted and bovie electrocautery again used until good hemostasis was noted. Monsel's solution was applied again. Good hemostasis was noted. Surgicel was applied and good hemostasis was observed for a full three minutes before the procedure was felt to be complete. The speculum was removed from the vagina. At the end of the procedure, all needle, sponge, and instrument counts were noted to be correct x2. The patient was transferred to the recovery room in stable condition.
--- NOTE | 2021-02-08 16:58 | PC.NURSE ---
[id number] dr. harvey contacted question whether post procedure cbc is required for h/h. no new orders per md.
== END 2021-02-08 17:35 | disposition home or self-care (01) ==
PROVIDERS: Anesthesiology; Visit Provider Obstetrics & Gynecology
PROC: 0UBC7ZZ Excision of Cervix, Via Natural or Artificial Opening (ICD-10-PCS; CPT 57522; principal; 2021-02-08 09:40)
PROC: (CPT 58120; principal; 2021-02-08 13:00)
DX: D06.9 Carcinoma in situ of cervix, unspecified (principal); Z98.51 Tubal ligation status; N99.820 Postprocedural hemorrhage of a genitourinary system organ or structure following a genitourinary system procedure; Y84.8 Other medical procedures as the cause of abnormal reaction of the patient, or of later complication, without mention of misadventure at the time of the procedure; Y76.8 Miscellaneous obstetric and gynecological devices associated with adverse incidents, not elsewhere classified; Y92.238 Other place in hospital as the place of occurrence of the external cause
CPT/HCPCS: 57520; 57510; 36415; 84702; 85027; 86850; 86900; 88305; 88307; J0131; J1100; J2250; J2405; J3010

== ENCOUNTER 2021-03-08 02:56 | Emergency (ER) | payer OTHER, SELFPAY ==
--- NOTE | 2021-03-08 03:11 | ED_ITS ---
HPI - Asthma General Chief Complaint: Asthma Stated Complaint: Asthma/Sob Time Seen by Provider: 03/08/21 03:10 Source: patient Mode of arrival: ambulatory Limitations: no limitations History of Present Illness HPI Narrative: asthma worsening over 2 weeks after her Breo was not Rx by pharmacy due to insurance issues using her INH with no relief, cannot remember the last time she was on prednisone complaint: asthma attack Onset (ago): week(s) (2) Severity: moderate, similar to prior and worse than usual Context: ran out of meds Associated symptoms: dry cough Asthma History: childhood onset Treatments Prior to Arrival: inhaled bronchodilator Related Data Home Medications Medication Instructions Recorded Confirmed albuterol sulfate 90 mcg/actuation 2 inh INHALATION Q6H PRN 12/01/20 02/01/21 breath activated powder inhaler fluticasone furoate 200 1 inh INHALATION Q24H 12/01/20 02/01/21 mcg-vilanterol 25 mcg/dose inhalation powder montelukast 10 mg tablet 10 mg PO DAILY 12/13/20 02/01/21 Previous Rx's Medication Instructions Recorded metronidazole 0.75 % vaginal gel 1 appful VAGINAL BID 5 Days #70 g 12/01/20 metronidazole 500 mg tablet 500 mg PO BID 7 Days #14 tab 12/07/20 azithromycin 500 mg tablet 1,000 mg PO DAILY 1 Days #2 tab 12/08/20 fluconazole 150 mg tablet 150 mg PO DAILY #1 tab 12/14/20 metronidazole 0.75 % vaginal gel 1 appful VAGINAL BEDTIME 5 Days 12/14/20 #70 g prednisone 40 mg PO DAILY 4 Days #8 tab 12/15/20 cephalexin [Keflex] 750 mg PO BID #14 cap 01/24/21 doxycycline hyclate 100 mg PO BID #14 cap 01/24/21 tramadol 50 mg PO BID PRN #7 tab 01/24/21 penicillin V potassium 500 mg PO TID 10 Days #30 tab 01/26/21 acetaminophen [Tylenol 8 Hour] 650 mg PO Q8H PRN #90 tab 02/07/21 ibuprofen 800 mg PO Q8H PRN #90 tab 02/07/21 oxycodone 5 mg capsule 5 mg PO Q6H PRN #20 cap 02/09/21 prednisone 40 mg PO DAILY 5 Days #10 tab 03/08/21 Allergies Allergy/AdvReac Type Severity Reaction Status Date / Time ENVIRONMENTAL Allergy Intermediate WATERY Uncoded 02/06/21 11:08 ITCHY EYES AND TRIGERS ASHTMA Review of Systems Review of Systems: Constitutional : No Fever, No Chills ENT/Mouth : No sore throat, No Rhinorrhea, No Swallowing Difficulty Eyes: No Eye Pain, No Swelling, No Redness Cardiovascular : No Chest Pain, positive SOB, No Orthopnea, no Edema Respiratory : pos Cough, No Sputum, pos Wheezing, positive dyspnea Gastrointestinal : No Nausea, No Vomiting, No Diarrhea, No abdominal Pain, No Hematochezia, No Melena Genitourinary : No Dysuria, No Urinary Frequency, No Hematuria Musculoskeletal : No joint pain, No Myalgias Skin : No Skin Lesions, No rash Neuro : No Weakness, No Numbness, No Dizziness, No Headache Psych : No Anxiety/Panic, No Depression Heme/Lymph: No Bruising, No Lymphadenopathy Endocrine : No Polyuria, No Polydipsia All other systems reviewed and are negative [facility] Past Medical History Attestation statement: The following information was validated with the patient. Medical History Asthma Cervical intraepithelial neoplasia grade III with severe dysplasia History of strep sore throat Major depressive disorder PTSD (post-traumatic stress disorder) Surgical History H/O tubal ligation Hx of tonsillectomy Family History Family History Paternal Grandfather Colon cancer Mother HTN (hypertension) Hyperlipidemia Depression Maternal Grandfather Lung cancer Father Asthma Social History Social History Alcohol intake: unknown Smoking Status: Smoker, status unknown Tobacco Type: Cigar and Cigarette Packs Per Day: 1 Advance Directives: No Gender identity: female Physical Exam Vital Signs: Vital Signs: Last Vital Signs Temp 98.4 F 03/08/21 03:13 Pulse 118 H 03/08/21 06:15 Resp 20 03/08/21 06:15 BP 112/59 L 03/08/21 06:15 Pulse Ox 96 03/08/21 06:15 Body Mass Index 22.1 Appearance: Alert. Oriented X3. Mild acute distress. Eyes: Pupils equal, round and reactive to light. ENT: Pharynx normal. Neck: Normal inspection. Neck supple. CVS: Normal heart rate and rhythm. Pulses normal. Respiratory: Mild respiratory distress tachypnea and short phrases. Breath sounds decreased throughout tight with exp wheezes Abdomen: Soft and nontender. Skin: Skin warm and dry. Normal skin color. Normal skin turgor. Extremities: No lower extremity edema. No calf ttp Neuro: Oriented X 3. No motor deficit. No sensory deficit. Course Course Course Narrative: lungs CTAB, 100% on RA - stable for DC feels much better MDM - Asthma MDM Narrative Medical decision making narrative: 30 yo female with asthma ran out of her Breo now with worsening wheezing at this time will need labs, hour long 10mg neb, IV steroids IV magnesium dispo per results and improvement, no concern for PNA or COVID at this time Lab Data Result diagrams: 03/08/21 03:27 03/08/21 03:27 Labs: Lab Results 03/08/21 03/08/21 Range/Units 03:27 03:27 WBC 8.8 (4.8-10.8) X10*3/uL RBC 4.22 (4.20-5.50) X10*6/uL Hgb 12.6 (12.0-16.0) g/dl Hct 38.2 (37-47) % MCV 90.5 (80-98) fL MCH 29.9 (27.0-33.0) pg MCHC 33.0 (31.0-35.0) g/dl RDW 14.4 (11.0-16.0) % Plt Count 256 D (160-400) X10*3/uL MPV 10.3 (9.4-12.3) fL Immature Gran % (Auto) 0.1 (0.0-0.4) % Neut % (Auto) 41.9 L (45-73) % Lymph % (Auto) 39.4 (20-40) % [place] % (Auto) 6.7 (2-11) % Eos % (Auto) 11.1 H (0-4) % Baso % (Auto) 0.8 (0-2) % Lymph # (Auto) 3.5 (1.2-4.9) X10*3/uL [place] # (Auto) 0.6 (0.1-1.2) X10*3/uL Eos # (Auto) 1.0 H (0.0-0.4) X10*3/uL Baso # (Auto) 0.1 (0.0-0.2) X10*3/uL Abs Immat Gran (auto) 0.01 (0.00-0.03) X10*3/uL Absolute Neuts (auto) 3.7 (2.0-8.3) X10*3/uL Absolute Nucleated RBC 0.000 (0.0-0.012) X10*3/uL Nucleated RBC % (auto) 0.0 (0.0-0.2) /100WBC Sodium 138 (135-145) mmol/L Potassium 3.7 (3.3-5.1) mmol/L Chloride 105 (96-108) mmol/L Carbon Dioxide 22 (22-29) mmol/L Anion Gap 15 (12-20) BUN 9 (9-16) mg/dL Creatinine 0.80 (0.5-1.4) mg/dL Estim Creat Clear Calc 84.2 Estimated GFR > 60 Random Glucose 83 (60-115) mg/dL Calcium 9.2 (8.4-10.2) mg/dL Critical Care Time Critical Care Time Critical Care Time: Yes Total Critical Care Time: 30 Attestation: hour long 10mg neb, IV steroids, IV magnesium I attest to this time spent taking care of the patient Discharge Plan Discharge Clinical Impression: Asthma with acute exacerbation Qualifiers: Asthma severity: moderate Asthma persistence: persistent Qualified Code(s): J45.41 - Moderate persistent asthma with (acute) exacerbation Patient Disposition: Home, Self-Care Instructions: Asthma (ED) Additional Instructions: return to ED for any worsening symptoms or concerns Prescriptions: New prednisone 20 mg tablet 40 mg PO DAILY 5 Days Qty: 10 RF: 0 No Action metronidazole [Flagyl] 500 mg tablet 500 mg PO BID 7 Days Qty: 14 RF: 0 azithromycin [Zithromax] 500 mg tablet 1,000 mg PO DAILY 1 Days Qty: 2 RF: 0 fluconazole [Diflucan] 150 mg tablet 150 mg PO DAILY Qty: 1 RF: 0 metronidazole [Metrogel Vaginal] 0.75 % gel 1 appful vaginal BEDTIME 5 Days Qty: 70 RF: 0 oxycodone 5 mg capsule 5 mg PO Q6H PRN (Reason: pain) Qty: 20 RF: 0 doxycycline hyclate 100 mg capsule 100 mg PO BID Qty: 14 RF: 0 cephalexin [Keflex] 750 mg capsule 750 mg PO BID Qty: 14 RF: 0 tramadol 50 mg tablet 50 mg PO BID PRN (Reason: pain) Qty: 7 RF: 0 penicillin V potassium 500 mg tablet 500 mg PO TID 10 Days Qty: 30 RF: 0 prednisone 20 mg tablet 40 mg PO DAILY 4 Days Qty: 8 RF: 0 ibuprofen 800 mg tablet 800 mg PO Q8H PRN (Reason: pain) Qty: 90 RF: 1 acetaminophen [Tylenol 8 Hour] 650 mg tablet extended release 650 mg PO Q8H PRN (Reason: pain) Qty: 90 RF: 1 Breo Ellipta 200-25 mcg/dose blister with device 1 inh inhalation Q24H RF: 0 albuterol sulfate 90 mcg/actuation aerosol powdr breath activated 2 inh inhalation Q6H PRN (Reason: Shortness Of Breath) RF: 0 metronidazole [Metrogel Vaginal] 0.75 % gel 1 appful vaginal BID 5 Days Qty: 70 RF: 5 montelukast 10 mg tablet 10 mg PO DAILY RF: 0
[2021-03-08 03:13] VITALS: BP 121/89; PULSE 98; RESP 22; TEMP 36.9; O2SAT 99; BMI 22.1
[2021-03-08] MEDS: Albuterol Sulfate (0.083%) 2.5 MG/3 ML VIAL.NEB 10 MG INHALE (03:29)
[2021-03-08 03:30] VITALS: PULSE 99; O2SAT 100
[2021-03-08 03:33] LABS: MANUAL DIFF FLAG NO
[2021-03-08] MEDS: 0.9 % Sodium Chloride 1,000 ML 999 ML IVCONT (03:35)
[2021-03-08] MEDS: Magnesium Sulfate/H2O 2 GM/50 ML PIGGYBACK IV (03:35)
[2021-03-08] MEDS: methylPREDNISolone Sod Succ 125 MG/2 ML VIAL IVPUSH (03:35)
[2021-03-08 03:37] LABS: Basophils Absolute Auto 0.1 X10*3/uL (0.0-0.2); Basophils Percent Auto 0.8 % (0-2); Eosinophils Percent Auto 11.1 % (0-4); Hematocrit 38.2 % (37-47); Hemoglobin 12.6 g/dl (12.0-16.0); Imm Gran Abs Auto 0.01 X10*3/uL (0.00-0.03); Imm Gran Pct Auto 0.1 % (0.0-0.4); Lymphocytes Absolute Auto 3.5 X10*3/uL (1.2-4.9); Lymphocytes Percent Auto 39.4 % (20-40); Mean Corpuscular Hemoglobin 29.9 pg (27.0-33.0); Mean Corpuscular Volume 90.5 fL (80-98); Mean Platelet Volume 10.3 fL (9.4-12.3); Monocytes Absolute Auto 0.6 X10*3/uL (0.1-1.2); Monocytes Percent Auto 6.7 % (2-11); Neutrophils Absolute Auto 3.7 X10*3/uL (2.0-8.3); Neutrophils Percent Auto 41.9 % (45-73); Platelet Count 256 X10*3/uL (160-400); Red Blood Count 4.22 X10*6/uL (4.20-5.50); Red Cell Distribution Width 14.4 % (11.0-16.0); White Blood Count 8.8 X10*3/uL (4.8-10.8)
[2021-03-08 06:09] LABS: Anion Gap 15 (12-20); Blood Urea Nitrogen 9 mg/dL (9-16); Calcium 9.2 mg/dL (8.4-10.2); Carbon Dioxide 22 mmol/L (22-29); Chloride 105 mmol/L (96-108); Creatinine Clr Calc Pharmacy 84.2; Estimated Glomerular Filt Rate > 60; Glucose Random 83 mg/dL (60-115); Potassium 3.7 mmol/L (3.3-5.1); Sodium 138 mmol/L (135-145)
[2021-03-08 06:15] VITALS: BP 112/59; PULSE 118; RESP 20; O2SAT 96
[2021-03-08] MEDS: Albuterol Sulfate 90 MCG 8 GM INHALER 2 PUFF INHALE (06:40)
== END 2021-03-08 06:43 | disposition home or self-care (01) ==
PROVIDERS: Emergency Provider Emergency Medicine
DX: J45.41 Moderate persistent asthma with (acute) exacerbation (principal); F17.210 Nicotine dependence, cigarettes, uncomplicated
CPT/HCPCS: 36415; 80048; 85025; 94640; 94644; 96361; 96365; 96375; 99284; J2930; J3475

== ENCOUNTER 2021-03-23 13:03 | Outpatient (REF) | payer OTHER, SELFPAY ==
[2021-03-24 03:29] LABS: CT PCR NOT DETECTED (Not Detect.); NG PCR NOT DETECTED (Not Detect.)
== END 2021-03-23 13:04 | disposition home or self-care (01) ==
LOC: HO.LAB 13:03
PROVIDERS: Visit Provider Advanced Practice Midwife
DX: A74.9 Chlamydial infection, unspecified (principal); D06.9 Carcinoma in situ of cervix, unspecified; Z98.890 Other specified postprocedural states; Z79.899 Other long term (current) drug therapy; F17.210 Nicotine dependence, cigarettes, uncomplicated; Z20.2 Contact with and (suspected) exposure to infections with a predominantly sexual mode of transmission
CPT/HCPCS: 87491; 87591; 99212

== ENCOUNTER 2021-10-05 13:31 | Outpatient (REF) | payer OTHER, SELFPAY ==
[2021-10-05 16:30] LABS: Hematocrit 44.1 % (37.0-47.0); Hemoglobin 14.5 g/dl (12.0-16.0); Mean Corpuscular HGB Conc 32.9 g/dl (31.0-35.0); Mean Corpuscular Hemoglobin 29.1 pg (27.0-33.0); Mean Corpuscular Volume 88.4 fL (80.0-98.0); Mean Platelet Volume 11.5 fL (9.4-12.3); Platelet Count 219 X10*3/uL (160-400); Red Blood Count 4.99 X10*6/uL (4.20-5.50); Red Cell Distribution Width 12.8 % (11.0-16.0)
[2021-10-05 17:31] LABS: Thyroid Stimulating Hormone 1.99 uIU/mL (0.32-4.0)
[2021-10-06 08:01] LABS: CT PCR NOT DETECTED (Not Detect.); NG PCR NOT DETECTED (Not Detect.)
[2021-10-06 12:03] LABS: BV Int Neg Control Negative (Negative); BV Int Pos Control Positive (Positive)
[2021-10-10 02:21] LABS: HPV mRNA E6/E7 rflx Not Detected (Not Detected)
== END 2021-10-05 13:32 | disposition home or self-care (01) ==
LOC: HO.LAB 13:31
PROVIDERS: PCP Nurse Practitioner Family; Visit Provider Advanced Practice Midwife
DX: Z12.4 Encounter for screening for malignant neoplasm of cervix (principal); Z11.3 Encounter for screening for infections with a predominantly sexual mode of transmission; Z11.51 Encounter for screening for human papillomavirus (HPV); D06.9 Carcinoma in situ of cervix, unspecified; N92.0 Excessive and frequent menstruation with regular cycle; N94.6 Dysmenorrhea, unspecified; F32.9 Major depressive disorder, single episode, unspecified; N92.1 Excessive and frequent menstruation with irregular cycle
CPT/HCPCS: 36415; 84443; 85027; 87480; 87491; 87510; 87591; 87624; 87660; 88142; 99212

== ENCOUNTER 2021-10-22 07:37 | Outpatient (REF) | payer OTHER, SELFPAY | END 2021-10-22 07:38 | disposition home or self-care (01) | LOC: HO.LAB 07:37 | PROVIDERS: Visit Provider Internal Medicine | DX: Z20.822 Contact with and (suspected) exposure to COVID-19 (principal) | CPT/HCPCS: C9803; U0003; U0005 ==

== ENCOUNTER 2021-11-25 03:33 | Emergency (ER) | payer OTHER, SELFPAY ==
[2021-11-25 04:02] VITALS: BP 128/76; PULSE 88; RESP 16; TEMP 36.7; O2SAT 97; BMI 21.7
[2021-11-25 04:21] LABS: COVID-19 Test Negative (Negative); IDNOW Serial# 9DD0AD1C
[2021-11-25 04:54] LABS: Appearance Urine CLEAR; Color Urine YELLOW; Glucose Urine UA NEG (NEG); Leukocyte Esterase Urine NEG (NEG); Nitrite Urine NEG (NEG); PH 7.5 (5.0-8.0); Urine Blood NEG (NEG); Urine Ketones NEG (NEG); Urine Protein NEG (NEG-TRACE)
[2021-11-25 04:57] LABS: UPreg QC Valid YES; Urine Pregnancy NEGATIVE (NEGATIVE)
--- NOTE | 2021-11-25 05:34 | ED.GENADULT ---
HPI - General Adult General Chief complaint: General Medical Stated complaint: Body Aches ?UTI Time Seen by Provider: 11/25/21 05:29 Source: patient Mode of arrival: ambulatory Limitations: no limitations History of Present Illness HPI narrative: Patient comes emergency room complaining of 2 weeks of generalized malaise, cough, weakness, flank pain. Patient states she tested positive for COVID-19 around Thanksgiving time. Related Data Home Medications Medication Instructions Recorded Confirmed albuterol sulfate 90 mcg/actuation 2 inh INHALATION Q6H PRN 12/01/20 03/23/21 breath activated powder inhaler fluticasone furoate 200 1 inh INHALATION Q24H 12/01/20 03/23/21 mcg-vilanterol 25 mcg/dose inhalation powder (Breo Ellipta) montelukast 10 mg tablet 10 mg PO DAILY 12/13/20 03/23/21 Previous Rx's Medication Instructions Recorded acetaminophen 650 mg 650 mg PO Q8H PRN #90 tab 02/07/21 tablet,extended release (Tylenol 8 Hour) metronidazole 500 mg tablet 500 mg PO BID 7 Days #14 tab 10/08/21 Allergies Allergy/AdvReac Type Severity Reaction Status Date / Time ENVIRONMENTAL Allergy Intermediate WATERY Uncoded 03/23/21 13:13 ITCHY EYES AND TRIGERS ASHTMA Review of Systems Review of Systems: Constitutional : No Weight loss, complaining of fever, chills, fatigue, generalized malaise ENT/Mouth : No Hearing loss, No Ear Pain, No Sinus Pain, No Hoarseness, No sore throat, No Rhinorrhea, No Swallowing Difficulty complaining of nasal congestion Eyes: No Eye Pain, No Swelling, No Redness, No Foreign Body, No Discharge, No Vision Changes Cardiovascular : No Chest Pain, No SOB, No Dyspnea on Exertion, No Orthopnea, No Edema, No Palpitations Respiratory : No Cough, No Sputum, No Wheezing, No Smoke Exposure, No Dyspnea Gastrointestinal : No Nausea, No Vomiting, No Diarrhea, No Constipation, No abdominal Pain, No Hematochezia, No Melena Genitourinary : no irregular bleeding, No Dysuria, No Urinary Frequency, No Hematuria, No Urinary Incontinence, No Urgency, No Flank Pain, No Urinary Flow Changes, No Hesitancy Musculoskeletal : No joint pain, No Myalgias, No Joint Swelling Skin : No Skin Lesions, No rash Neuro : No Weakness, No Numbness, No Paresthesias, No Loss of Consciousness, No Dizziness, No Headache Psych : No Anxiety/Panic, No Depression, No SI/HI/AH/VH, No Social Issues, Heme/Lymph: No Bruising, No Bleeding,No Lymphadenopathy Endocrine : No Polyuria, No Polydipsia, No Temperature Intolerance [facility] Past Medical History Medical History Asthma Cervical intraepithelial neoplasia grade III with severe dysplasia History of strep sore throat Major depressive disorder PTSD (post-traumatic stress disorder) Surgical History H/O cone biopsy of cervix H/O tubal ligation Hx of tonsillectomy Family History Family History Paternal Grandfather Colon cancer Mother HTN (hypertension) Hyperlipidemia Depression Maternal Grandfather Lung cancer Father Asthma Social History Social History Alcohol intake: unknown Cigarette Packs Per Day: 1 Advance Directives: No Advance Directives Information Provided: No Patient : No Gender identity: Female Physical Exam Vital Signs: Vital Signs: Last Vital Signs Temp 98.1 F 11/25/21 04:02 Pulse 88 11/25/21 04:02 Resp 16 11/25/21 04:02 BP 128/76 11/25/21 04:02 Pulse Ox 97 11/25/21 04:02 BMI result Body Mass Index 21.7 Const: Other: Appearance: Alert. Oriented X3. No acute distress. Eyes: Pupils equal, round and reactive to light. ENT: Pharynx normal. Neck: Normal inspection. Neck supple. No lymph nodes noted. No crepitus CVS: Normal heart rate and rhythm. Pulses normal. Normal S1 and S2 Respiratory: No respiratory distress. Breath sounds normal. No Wheezing. No rales Abdomen: Soft and nontender. No rigidity. No distention. Skin: Skin warm and dry. Normal skin color. Normal skin turgor. Extremities: No lower extremity edema. No Lacerations. No Rash Neuro: Oriented X 3. No motor deficit. No sensory deficit. Moving all extermities. No slurred speech. Course Course Course Narrative: Patient's urinalysis negative, COVID test negative. Patient likely having a viral syndrome, 1 dose of ibuprofen was given Medical Decision Making Lab Data Labs: Lab Results 11/25/21 11/25/21 11/25/21 Range/Units 03:50 04:42 04:42 Urine Color YELLOW Urine Appearance CLEAR Urine pH 7.5 (5.0-8.0) Ur Specific [place] 1.010 (1.005-1.025) Urine Protein NEG (NEG-TRACE) MG/DL Urine Glucose (UA) NEG (NEG) MG/DL Urine Ketones NEG (NEG) MG/DL Urine Blood NEG (NEG) Urine Nitrite NEG (NEG) Ur Leukocyte Esterase NEG (NEG) Urine Test NEGATIVE (NEGATIVE) COVID-19 (IQRA) Negative (Negative) COVID-19 Clin Com See Note Discharge Plan Discharge Clinical Impression: Acute viral syndrome Patient Disposition: Home, Self-Care Instructions: Acute Nausea and Vomiting (ED) Additional Instructions: Please follow-up with your primary care physician tomorrow. If you have any worsening or new symptoms, please return to the emergency room or call 911 Prescriptions: No Action metronidazole 500 mg tablet 500 mg PO BID 7 Days Qty: 14 RF: 0 acetaminophen [Tylenol 8 Hour] 650 mg tablet extended release 650 mg PO Q8H PRN (Reason: pain) Qty: 90 RF: 1 Breo Ellipta 200-25 mcg/dose blister with device 1 inh inhalation Q24H RF: 0 albuterol sulfate 90 mcg/actuation aerosol powdr breath activated 2 inh inhalation Q6H PRN (Reason: Shortness Of Breath) RF: 0 montelukast 10 mg tablet 10 mg PO DAILY RF: 0
[2021-11-25 05:43] VITALS: BP 114/70; PULSE 81; RESP 16; TEMP 36.8; O2SAT 98
[2021-11-25] MEDS: Ibuprofen 600 MG TABLET PO (05:46)
== END 2021-11-25 05:48 | disposition home or self-care (01) ==
PROVIDERS: Emergency Provider Emergency Medicine
DX: B34.9 Viral infection, unspecified (principal); J45.909 Unspecified asthma, uncomplicated; Z20.822 Contact with and (suspected) exposure to COVID-19
CPT/HCPCS: 36415; 81003; 81025; 87635; 99283; 99284

== ENCOUNTER 2023-05-21 14:03 | Emergency (ER) | payer MEDICAID, SELFPAY ==
--- NOTE | ~2023-05-21 | CT_ITS ---
EXAMINATION: CT HEAD WITHOUT CONTRAST CLINICAL INFORMATION: Left upper extremity weakness. COMPARISON: 01/13/2017 TECHNIQUE: Contiguous axial imaging was performed from the skull base to vertex without intravenous administration of contrast. This CT examination was performed using dose optimization techniques as appropriate, variously including the following: *Automated exposure control *Adjustment of mA and/or kV according to patient size (this includes techniques or standardized protocols for targeted exams where dose is matched to indication/reason for exam; i.e. extremities or head) *Use of iterative reconstruction technique DLP: 618 mGy-cm FINDINGS: There is no evidence of acute intracranial hemorrhage or territorial infarction. No mass effect or midline shift is seen. Holland to white matter differentiation is well preserved. No extra-axial fluid collections are identified. The ventricles are normal in size. The calvarium is intact. Mucoperiosteal thickening of the ethmoid air cells. Mucosal thickening of the right sphenoid sinus and bilateral maxillary sinuses. Mastoid air cells are clear. CT/CT head/brain wo IV con IMPRESSION: No acute intracranial pathology.
[2023-05-21 14:35] VITALS: BP 132/68; PULSE 80; RESP 16; TEMP 36.2; O2SAT 97; BMI 23.6
--- NOTE | 2023-05-21 14:38 | ED_ITS ---
HPI - Neuro Symptoms/Deficit General Chief Complaint: Weakness Stated Complaint: numb left hand Time Seen by Provider: 05/21/23 16:06 Source: patient Mode of arrival: ambulatory History of Present Illness HPI Narrative: 33-year-old female with presentation of numbness and pain involving the left thumb less distribution over the left index finger no difficulty with supination/pronation denies any hand dorsum numbness, states that the pain and discomfort extends to mid forearm at the radial aspect and also reports that she has difficulty with extension at the wrist. She denies any discomfort across the left shoulder coming down from the proximal left upper extremity, she does work as a [employer], denies any recent fevers, chills but states that she has noted some discomfort previously. Related Data Home Medications Medication Instructions Recorded Confirmed albuterol sulfate 90 mcg/actuation 2 inh inhalation Q6H PRN Shortness 12/01/20 03/23/21 breath activated powder inhaler Of Breath fluticasone furoate 200 1 inh inhalation Q24H 12/01/20 03/23/21 mcg-vilanterol 25 mcg/dose inhalation powder (Breo Ellipta) montelukast 10 mg tablet 10 mg PO DAILY 12/13/20 03/23/21 Previous Rx's Medication Instructions Recorded acetaminophen 650 mg 650 mg PO Q8H PRN pain #90 tabs 02/07/21 tablet,extended release (Tylenol 8 Hour) metronidazole 500 mg tablet 500 mg PO BID 7 days #14 tabs 10/08/21 Allergies Allergy/AdvReac Type Severity Reaction Status Date / Time ENVIRONMENTAL Allergy Intermediate WATERY Uncoded 05/21/23 14:35 ITCHY EYES AND TRIGERS ASHTMA Review of Systems Review of Systems: Pertinent positives and negatives as stated in HPI [facility] Past Medical History Source: nursing notes reviewed Medical History Asthma Cervical intraepithelial neoplasia grade III with severe dysplasia History of strep sore throat Major depressive disorder PTSD (post-traumatic stress disorder) Surgical History H/O cone biopsy of cervix H/O tubal ligation Hx of tonsillectomy Family History Family History Paternal Grandfather Colon cancer Mother HTN (hypertension) Hyperlipidemia Depression Maternal Grandfather Lung cancer Father Asthma Social History Social History Alcohol intake: unknown Cigarette Packs Per Day: 1 Advance Directives: No Advance Directives Information Provided: No Gender identity: Female Physical Exam Vital Signs: Vital Signs: Last Vital Signs Temp 98.1 F 05/21/23 16:48 Pulse 80 05/21/23 14:35 Resp 18 05/21/23 16:32 BP 132/68 05/21/23 14:35 Pulse Ox 98 05/21/23 16:32 O2 Del Method Room Air 05/21/23 16:32 BMI result Body Mass Index 23.6 VITAL SIGNS: Reviewed. GENERAL: Well developed, well nourished, in no acute distress. HEAD: Normocephalic/atraumatic EYES: PERRLA, EOMI EARS: Ext canals without abnormality NOSE: Nares patent bilateral OROPHARYNX: no oral lesions noted, posterior pharynx clear NECK: Supple, no adenopathy LUNGS: Normal breath sounds. No adventitious sounds or accessory muscle use. SpO2<98> CARDIOVASCULAR: Regular rate and rhythm without noted murmurs ABDOMEN: Soft, non-tender, non-distended with bowel sounds. MUSCULOSKELETAL: No tenderness, deformities, or effusions noted on gross inspection. EXTREMITIES: No cyanosis, clubbing or edema; PHALEN'S: Positive, assessment of radial nerve distribution only positive for difficulty on extension, pulses are palpable sensation is otherwise fully intact. SKIN: Inspection of the skin reveals no rashes, ulcerations, jaundice, pallor, or petechiae. NEUROLOGIC: Alert and oriented x 4. Strength and sensation to light touch were grossly intact x 4, cranial nerves 2-12 grossly intact, no wrist drop Course Course Course Narrative: RME: 33yo F w/PMHx MDD, c/o LUE weakness & heaviness since 4AM. Admits to difficulty lifting and showering. denies injury, visual changes, speech changes, RAPP, neck pain or taking AC +LUE 4/5 strength noted. ambulating w/steady gait EKG, labs, Head CT ordered Full HPI, ROS and PE to be performed by primary ED provider. Medical Decision Making Medical Decision Making MDM Narrative: 33-year-old female with conflicting nerve inflammation, radicular symptoms, but highly doubt central neuro deficit. Will rule out possible inflammatory etiologies with ESR, CRP, Spurling's was negative arguing against cervical radiculopathy in combination the distribution is inconsistent with a cervical radiculopathy, neuropathic pain of unclear etiology is a possibility. No evidence of vascular compromise. Review of inflammatory markers are negative for evidence of this as a contri buting factor and my interpretation is that this is likely CTS with positive Phalen's. She is discharged home with recommendations for splint at night in follow-up with her primary care provider. Differential Diagnosis Please see the discussion above Lab Data Please see the discussion above 05/21/23 14:54 05/21/23 14:54 Labs: Lab Results 05/21/23 05/21/23 05/21/23 Range/Units 14:54 14:54 14:54 WBC 5.9 (4.8-10.8) X10*3/uL RBC 4.68 (4.20-5.50) X10*6/uL Hgb 13.3 (12.0-16.0) g/dl Hct 41.0 (37.0-47.0) % MCV 87.6 (80.0-98.0) fL MCH 28.4 (27.0-33.0) pg MCHC 32.4 (31.0-35.0) g/dl RDW 13.2 (11.0-16.0) % Plt Count 198 (160-400) X10*3/uL MPV 10.0 (9.4-12.3) fL Immature Gran % (Auto) 0.2 (0.0-0.4) % Neut % (Auto) 29.9 L (45-73) % Lymph % (Auto) 54.6 H (20-40) % [place] % (Auto) 6.4 (2-11) % Eos % (Auto) 8.1 H (0-4) % Baso % (Auto) 0.8 (0-2) % Lymph # (Auto) 3.2 (1.2-4.9) X10*3/uL [place] # (Auto) 0.4 (0.1-1.2) X10*3/uL Eos # (Auto) 0.5 H (0.0-0.4) X10*3/uL Baso # (Auto) 0.1 (0.0-0.2) X10*3/uL Abs Immat Gran (auto) 0.01 (0.00-0.03) X10*3/uL Absolute Neuts (auto) 1.8 L (2.0-8.3) x10*3/uL Absolute Nucleated RBC 0.000 (0.0-0.012) X10*3/uL Nucleated RBC % (auto) 0.0 (0.0-0.2) /100WBC ESR (0-20) MM/HR PT 10.4 (10.0-13.1) SEC INR 0.9 (0.9-1.1) Sodium 140 (135-145) mmol/L Potassium 4.5 D (3.3-5.1) mmol/L Chloride 106 (96-108) mmol/L Carbon Dioxide 27 (22-29) mmol/L Anion Gap 12 (12-20) BUN 11 (9-16) mg/dL Creatinine 0.73 (0.5-1.4) mg/dL Estim Creat Clear Calc 89.8 Estimated GFR > 60 Random Glucose 104 (60-115) mg/dL Calcium 9.7 (8.4-10.2) mg/dL Magnesium 2.0 (1.6-2.6) mg/dL Total Bilirubin 0.6 (0.0-1.0) mg/dL Direct Bilirubin 0.2 (0.0-0.5) mg/dL AST 15 (5-31) U/L ALT 11 (0-31) U/L Alkaline Phosphatase 63 (39-117) U/L C-Reactive Protein 0.27 (< or = 0.50) mg/dL Total Protein 6.8 (6.5-8.0) g/dL Albumin 4.3 (3.5-5.0) g/dL 05/21/23 Range/Units 14:54 WBC (4.8-10.8) X10*3/uL RBC (4.20-5.50) X10*6/uL Hgb (12.0-16.0) g/dl Hct (37.0-47.0) % MCV (80.0-98.0) fL MCH (27.0-33.0) pg MCHC (31.0-35.0) g/dl RDW (11.0-16.0) % Plt Count (160-400) X10*3/uL MPV (9.4-12.3) fL Immature Gran % (Auto) (0.0-0.4) % Neut % (Auto) (45-73) % Lymph % (Auto) (20-40) % [place] % (Auto) (2-11) % Eos % (Auto) (0-4) % Baso % (Auto) (0-2) % Lymph # (Auto) (1.2-4.9) X10*3/uL [place] # (Auto) (0.1-1.2) X10*3/uL Eos # (Auto) (0.0-0.4) X10*3/uL Baso # (Auto) (0.0-0.2) X10*3/uL Abs Immat Gran (auto) (0.00-0.03) X10*3/uL Absolute Neuts (auto) (2.0-8.3) x10*3/uL Absolute Nucleated RBC (0.0-0.012) X10*3/uL Nucleated RBC % (auto) (0.0-0.2) /100WBC ESR 2 (0-20) MM/HR PT (10.0-13.1) SEC INR (0.9-1.1) Sodium (135-145) mmol/L Potassium (3.3-5.1) mmol/L Chloride (96-108) mmol/L Carbon Dioxide (22-29) mmol/L Anion Gap (12-20) BUN (9-16) mg/dL Creatinine (0.5-1.4) mg/dL Estim Creat Clear Calc Estimated GFR Random Glucose (60-115) mg/dL Calcium (8.4-10.2) mg/dL Magnesium (1.6-2.6) mg/dL Total Bilirubin (0.0-1.0) mg/dL Direct Bilirubin (0.0-0.5) mg/dL AST (5-31) U/L ALT (0-31) U/L Alkaline Phosphatase (39-117) U/L C-Reactive Protein (< or = 0.50) mg/dL Total Protein (6.5-8.0) g/dL Albumin (3.5-5.0) g/dL Independent Interpretation I performed an independent interpretation of an: EKG Interpretation: Normal sinus rhythm, HR-63, no STEMI, MT/QRS/QTC is within normal limits. Radiology Impression Radiologist Impression: No obvious head bleed otherwise agree with radiology's impression. External Record Review External record reviewed: Prior outpatient labs Chronic Conditions Patient?s care impacted by: Other Asthma Discharge Plan Discharge Clinical Impression: Peripheral neuropathy Patient Disposition: Home, Self-Care Instructions: Peripheral Neuropathy (ED) Additional Instructions: 1. I suspect you may have carpal tunnel syndrome, initial step is to use splinting at night, these are available at every [facility]'s. 2. Please follow-up with primary care provider. Return to the ER for any worsening symptoms. Prescriptions: No Action metronidazole 500 mg tablet 500 mg PO BID 7 Days Qty: 14 0RF Rx Instructions: Take with food, Avoid alcohol and vinegar products acetaminophen [Tylenol 8 Hour] 650 mg tablet extended release 650 mg PO Q8H PRN (Reason: pain) Qty: 90 1RF Rx Instructions: Take 4 hours after ibuprofen and continue alternating Breo Ellipta 200-25 mcg/dose blister with device 1 inh inhalation Q24H albuterol sulfate 90 mcg/actuation aerosol powdr breath activated 2 inh inhalation Q6H PRN (Reason: Shortness Of Breath) montelukast 10 mg tablet 10 mg PO DAILY Referrals: Carol Rocha, PLATE PREPARER [Primary Care Provider] -
--- NOTE | 2023-05-21 14:41 | ECG_ITS ---
Test Reason : lue weakness Blood Pressure : / mmHG Vent. Rate : 063 BPM Atrial Rate : 063 BPM P-R Int : 130 ms QRS Dur : 082 ms QT Int : 402 ms P-R-T Axes : 047 055 039 degrees QTc Int : 411 ms Normal sinus rhythm Normal ECG When compared with ECG of 09-OCT-2020 23:59, No significant change was found Referred By: Kristi Macedo Electronically Signed By:Philippe Bojorquez
[2023-05-21 14:58] LABS: MANUAL DIFF FLAG NO
[2023-05-21 14:59] LABS: Basophils Absolute Auto 0.1 X10*3/uL (0.0-0.2); Basophils Percent Auto 0.8 % (0-2); Eosinophils Absolute Auto 0.5 X10*3/uL (0.0-0.4); Eosinophils Percent Auto 8.1 % (0-4); Hemoglobin 13.3 g/dl (12.0-16.0); Imm Gran Abs Auto 0.01 X10*3/uL (0.00-0.03); Imm Gran Pct Auto 0.2 % (0.0-0.4); Lymphocytes Absolute Auto 3.2 X10*3/uL (1.2-4.9); Lymphocytes Percent Auto 54.6 % (20-40); Mean Corpuscular HGB Conc 32.4 g/dl (31.0-35.0); Mean Corpuscular Hemoglobin 28.4 pg (27.0-33.0); Mean Corpuscular Volume 87.6 fL (80.0-98.0); Monocytes Absolute Auto 0.4 X10*3/uL (0.1-1.2); Monocytes Percent Auto 6.4 % (2-11); Neutrophils Absolute Auto 1.8 x10*3/uL (2.0-8.3); Neutrophils Percent Auto 29.9 % (45-73); Platelet Count 198 X10*3/uL (160-400); Red Blood Count 4.68 X10*6/uL (4.20-5.50); Red Cell Distribution Width 13.2 % (11.0-16.0); White Blood Count 5.9 X10*3/uL (4.8-10.8)
[2023-05-21 15:14] LABS: Alanine Aminotransferase 11 U/L (0-31); Albumin Level 4.3 g/dL (3.5-5.0); Alkaline Phosphatase 63 U/L (39-117); Anion Gap 12 (12-20); Aspartate Amino Transferase 15 U/L (5-31); Bilirubin Direct 0.2 mg/dL (0.0-0.5); Bilirubin Total 0.6 mg/dL (0.0-1.0); Blood Urea Nitrogen 11 mg/dL (9-16); Calcium 9.7 mg/dL (8.4-10.2); Carbon Dioxide 27 mmol/L (22-29); Chloride 106 mmol/L (96-108); Creatinine Clr Calc Pharmacy 89.8; Estimated Glomerular Filt Rate > 60; Glucose Random 104 mg/dL (60-115); Potassium 4.5 mmol/L (3.3-5.1); Sodium 140 mmol/L (135-145); Total Protein 6.8 g/dL (6.5-8.0)
[2023-05-21 15:18] LABS: INTERNATIONAL NORM RATIO 0.9 (0.9-1.1); Prothrombin Time 10.4 SEC (10.0-13.1)
[2023-05-21 16:32] VITALS: RESP 18; O2SAT 98
--- NOTE | 2023-05-21 16:39 | PC.NURSE ---
attending at bedside aware pt having pt difficulty flexing left arm as well as numbness and tingling to left lower arm and hand. good strength. no drift.clear coherent speech. no other defecits. aox4. calm, cooperative. walks steadily w/no issues w balance.
[2023-05-21 16:48] VITALS: TEMP 36.7
[2023-05-21 17:28] LABS: C Reactive Protein 0.27 mg/dL (< or = 0.50)
[2023-05-21 18:32] LABS: Erythrocyte Sedimentation Rate 2 MM/HR (0-20)
--- NOTE | 2023-05-21 18:59 | PC.NURSE ---
pt left w/o discharge paperwork.
== END 2023-05-21 19:01 | disposition home or self-care (01) ==
PROVIDERS: Physician Assistant; Emergency Provider Student in an Organized Health Care Education/Training Program; PCP Nurse Practitioner Family
DX: G62.9 Polyneuropathy, unspecified (principal); Z79.899 Other long term (current) drug therapy; F17.210 Nicotine dependence, cigarettes, uncomplicated
CPT/HCPCS: 36415; 70450; 80048; 80076; 83735; 85025; 85610; 85652; 86140; 93005; 99284

== ENCOUNTER 2023-07-31 14:41 | Outpatient (AMB) | payer MEDICAID, SELFPAY ==
[2023-07-31 14:46] VITALS: BP 102/64; BMI 24.8
--- NOTE | 2023-07-31 14:46 | MHC.OFFVIS ---
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 Intake Note: pt c/o BV Parimutuel Ticket Seller: Parimutuel Ticket Seller Present (Radha) Allergies ENVIRONMENTAL Allergy (Intermediate, Uncoded 07/31/23 14:47) WATERY ITCHY EYES AND TRIGERS ASHTMA Medication List - Last Reconciled 07/31/23 by Miranda Patel CNM acetaminophen ER (Tylenol 8 Hour) 650 mg PO Q8H PRN albuterol sulfate 90 mcg/actuation 2 inhalations inhalation Q6H PRN budesonide-formoterol 160-4.5 mcg/actuation (Symbicort) 2 puffs inhalation BID Is last menstrual period known: Yes Last menstrual period: 07/13/23 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 She has had a tubal ligation. She thinks she is getting her. She has been noticing that she has been getting BV recurrences she has tried lots a thing she prefers the gel treatment to the Flagyl p.o.. She does notice that it recurs more often after sex. She is aware of all the contributing factors. She has had abnormal Paps and LEEP in the past. Her children are 18 and 14. 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 She does try to eat well though she has cut down on smoking from a full pack a day and she notices she she has gained weight and is eating more. She is not worried about STIs but would like testing while I am testing everything. [facility] Medical History Cervical intraepithelial neoplasia grade III with severe dysplasia History of strep sore throat Major depressive disorder PTSD (post-traumatic stress disorder) Asthma Surgical History H/O cone biopsy of cervix Hx of tonsillectomy H/O tubal ligation Family History (Updated 07/31/23 @ 14:49 by HONG Licona) Paternal Grandfather Colon cancer Mother HTN (hypertension) Hyperlipidemia Depression Maternal Grandfather Lung cancer Father Asthma Paternal Grandmother Ovarian cancer Social History (Updated 07/31/23 @ 14:50 by HONG Licona) Alcohol intake: current Alcohol intake frequency: holidays/special occasions only Patient Tobacco Use Status: Current everyday Tobacco user Cigarettes Per Day: 6 Gender identity: Female Female Reproductive History Menstrual Age of Menarche: 12 Duration of menses: 6-7 days Date of last menstrual period: 07/13/23 control method: permanent sterilization Permanent Sterilization: BTL Total pregnancies: 4 Full term: 2 Number of Living Children: 2 Ab induced: 2 Date of last pap smear: 10/05/21 (neg pap and hpv) History of abnormal pap smear: Yes (12/14 hgsil 01/14 colpo cin2-3 02/11 leep cin3) Physical Exam Vital Signs: Last Vital Signs BP 102/64 07/31/23 14:46 BMI result Body Mass Index 24.8 Const General: healthy appearing, comfortable, no acute distress, well developed and alert Nutritional Appearance: average body habitus Orientation/consciousness: patient oriented x3 Limitations: no limitations HEENT Head: Yes normocephalic Neck Neck: Yes normal visual inspection Chest Chest palpation & inspection: normal inspection of the chest Breast/axilla inspection: normal inspection of the breasts and normal inspection of the axillae Breast/axilla palpation: normal palpation of the breasts and normal palpation of the axillae Resp Effort & Inspection: normal respiratory effort GI Inspection: Yes normal to inspection, No Abdominal wall edema and No distended Palpation (GI): Soft to palpation and nontender Other: Cervix is clear status post LEEP, it is long close thick mobile nontender uterus is anteverted nontender mobile. Adnexa nontender good tone with Kegel. General: Yes bladder normal to palpation External Female Exam: normal external appearance and normal appearance of the urethra Speculum Exam - Vagina: normal appearance of the vagina, normal palpation and normal vaginal discharge Speculum Exam - Cervix: normal appearance of the cervix, normal palpation and nontender Bimanual exam- vagina & uterus: normal bimanual exam, normal palpation, uterine size normal, bladder normal to palpation, consistency normal, normal palpation, uterine mobility normal, uterine shape normal, No Cervical tenderness present, non-tender and no cervical motion tenderness Bimanual Exam- Adnexa, other: normal adnexae, no masses, normal and No adnexal tenderness Neuro General: patient oriented x3 Assessment & Plan Assessment & Plan (1) Hx of cervical biopsy: Comment: cold knife cervical cone biopsy 02/08/21, w return to or for bleeding Code(s): Z98.890 - Other specified postprocedural states (2) Cervical intraepithelial neoplasia grade III with severe dysplasia: Code(s): D06.9 - Carcinoma in situ of cervix, unspecified (3) Bacterial vaginosis: Code(s): N76.0 - Acute vaginitis; B96.89 - Other specified bacterial agents as the cause of diseases classified elsewhere (4) Potential exposure to STD: Code(s): Z20.2 - Contact with and (suspected) exposure to infections with a predominantly sexual mode of transmission (5) Well woman exam with routine gynecological exam: Code(s): Z01.419 - Encounter for gynecological examination (general) (routine) without abnormal findings (6) Problematic vaginal discharge: Code(s): N89.8 - Other specified noninflammatory disorders of vagina Plan -----Discussed in this visit the following: healthy balanced diet, regular and consistent exercise, getting recommended health screens, doing the best she can for her particular health concerns, kane exercises, pap smear screening and followup recommendations, mammography screening and SBE, normal changes in cycles in her life stage--- . Reviewed her excellent efforts to try and be as healthy as she can be for herself in her family. She would like to quit smoking she recently had to reschedule her own primary care appointment and knows it is going to take months to reschedule. She was picking her father up from the hospital after he had had a stroke and had to cancel. I offered. the patient a prescription for Metrogel with refills, or BV along with the teaching. Since she will not be able to see her primary for a while I also offered her a prescription for nicotine patches at the does equivalent for a half pack-a-day smoker she excepted and will re double her efforts to stop smoking. Kane's reviewed. Testing for STIs ordered at her request note for excuse from work so she can have proof that she was here at an appointment. We will see her in 1 year if this Pap is normal and we will send her the results by letter. Orders: Orders Pap Smear Today Z01.419 - Encounter for gynecological examination (general) (routine) without abnormal findings Hepatitis B Surface Antigen Today B96.89 - Other specified bacterial agents as the cause of diseases classified elsewhere, D06.9 - Carcinoma in situ of cervix, unspecified, N76.0 - Acute vaginitis, N89.8 - Other specified noninflammatory disorders of vagina, Z01.419 - Encounter for gynecological examination (general) (routine) without abnormal findings, Z20.2 - Contact with and (suspected) exposure to infections with a predominantly sexual mode of transmission, Z98.890 - Other specified postprocedural states Hepatitis C Antibody Today B96.89 - Other specified bacterial agents as the cause of diseases classified elsewhere, D06.9 - Carcinoma in situ of cervix, unspecified, N76.0 - Acute vaginitis, N89.8 - Other specified noninflammatory disorders of vagina, Z01.419 - Encounter for gynecological examination (general) (routine) without abnormal findings, Z20.2 - Contact with and (suspected) exposure to infections with a predominantly sexual mode of transmission, Z98.890 - Other specified postprocedural states HIV Ab/Ag Today B96.89 - Other specified bacterial agents as the cause of diseases classified elsewhere, D06.9 - Carcinoma in situ of cervix, unspecified, N76.0 - Acute vaginitis, N89.8 - Other specified noninflammatory disorders of vagina, Z01.419 - Encounter for gynecological examination (general) (routine) without abnormal findings, Z20.2 - Contact with and (suspected) exposure to infections with a predominantly sexual mode of transmission, Z98.890 - Other specified postprocedural states Syphilis Screen Today B96.89 - Other specified bacterial agents as the cause of diseases classified elsewhere, D06.9 - Carcinoma in situ of cervix, unspecified, N76.0 - Acute vaginitis, N89.8 - Other specified noninflammatory disorders of vagina, Z01.419 - Encounter for gynecological examination (general) (routine) without abnormal findings, Z20.2 - Contact with and (suspected) exposure to infections with a predominantly sexual mode of transmission, Z98.890 - Other specified postprocedural states Bacterial Vaginosis Panel Today N89.8 - Other specified noninflammatory disorders of vagina CT NG by PCR Today N89.8 - Other specified noninflammatory disorders of vagina, Z20.2 - Contact with and (suspected) exposure to infections with a predominantly sexual mode of transmission Medications: New metronidazole 0.75%(37.5mg/5gram) 1 appful vaginal BID 5 days 1 kit 2RF nicotine 1 patch transdermal Q24H 28 ea 0RF metronidazole 0.75%(37.5mg/5gram) 1 appful vaginal BID 5 days 1 kit 2RF Coding Level of Care Code Est Pt Prev Care 18-39y(13024) Diagnoses Hx of cervical biopsy Z98.890 Cervical intraepithelial neoplasia grade III with severe dysplasia D06.9 Bacterial vaginosis N76.0; B96.89 Potential exposure to STD Z20.2 Well woman exam with routine gynecological exam Z01.419 Problematic vaginal discharge N89.8
== END 2023-07-31 15:39 | disposition home or self-care (01) ==
PROVIDERS: PCP Nurse Practitioner Family; Visit Provider Advanced Practice Midwife
DX: Z98.890 Other specified postprocedural states (principal); D06.9 Carcinoma in situ of cervix, unspecified; N76.0 Acute vaginitis; B96.89 Other specified bacterial agents as the cause of diseases classified elsewhere; Z20.2 Contact with and (suspected) exposure to infections with a predominantly sexual mode of transmission; Z01.419 Encounter for gynecological examination (general) (routine) without abnormal findings; N89.8 Other specified noninflammatory disorders of vagina
CPT/HCPCS: 99395

== ENCOUNTER 2023-07-31 14:41 | Outpatient (REF) | payer MEDICAID, SELFPAY ==
[2023-08-01 02:25] LABS: CT PCR NOT DETECTED (Not Detect.); NG PCR NOT DETECTED (Not Detect.)
[2023-08-01 16:02] LABS: BV Int Neg Control Negative (Negative); BV Int Pos Control Positive (Positive)
[2023-08-05 06:54] LABS: HPV mRNA E6/E7 rflx Not Detected (Not Detected)
== END 2023-07-31 14:42 | disposition home or self-care (01) ==
LOC: HO.LNP 14:41
PROVIDERS: PCP Nurse Practitioner Family; Visit Provider Advanced Practice Midwife
DX: Z01.419 Encounter for gynecological examination (general) (routine) without abnormal findings (principal); Z11.51 Encounter for screening for human papillomavirus (HPV); D06.9 Carcinoma in situ of cervix, unspecified; B96.89 Other specified bacterial agents as the cause of diseases classified elsewhere; Z20.2 Contact with and (suspected) exposure to infections with a predominantly sexual mode of transmission; N89.8 Other specified noninflammatory disorders of vagina; Z98.890 Other specified postprocedural states
CPT/HCPCS: 0353U; 87480; 87510; 87624; 87660; 88142; 99395

== ENCOUNTER 2023-07-31 15:23 | Outpatient (REF) | payer MEDICAID, SELFPAY | END 2023-07-31 15:24 | disposition home or self-care (01) | LOC: HO.LAB 15:23 | PROVIDERS: Visit Provider Advanced Practice Midwife | DX: Z13.89 Encounter for screening for other disorder (principal) ==

== ENCOUNTER 2024-08-02 13:53 | Outpatient (AMB) | payer OTHER, SELFPAY ==
[2024-08-02 14:14] VITALS: BP 110/70; BMI 26.7
--- NOTE | 2024-08-02 14:14 | MHC.OFFVIS ---
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: No Information Interpreted: clinical only Charging Manipulator: Charging Manipulator Present Allergies ENVIRONMENTAL Allergy (Intermediate, Uncoded 08/02/24 14:15) WATERY ITCHY EYES AND TRIGERS ASHTMA Medication List - Last Reconciled 08/02/24 by Miranda Patel CNM acetaminophen ER (Tylenol 8 Hour) 650 mg PO Q8H PRN albuterol sulfate 90 mcg/actuation 2 inhalations inhalation Q6H PRN fluticasone propion-salmeterol 250-50 mcg/dose (Wixela Inhub) 1 inh inhalation BID nicotine 1 patch transdermal Q24H Is last menstrual period known: Yes Last menstrual period: 07/17/24 Do you need a note to return to daycare/school/sports/work: No HPI HPI 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 She feels like she gets bacterial vaginosis all the time and especially really bad after she has sex sex is also very uncomfortable for her ever since she had the LEEP so she does not have sex very often. After she had the LEEP in 2020 she ended up bleeding very heavily and had to be seen in the emergency room in fill the bedpan bled was taken back to the operating room. Her last Pap smear was normal her LEEP was done for TEJA 3. She had her tubes tied so does not need to worry about control she does notice the increased discharge with ovulation and she no douches since previous conversation and has noticed that infection bowman things are least better now but she still feels like she gets BV a lot she would like another prescription for metronidazole gel. She is open to testing for STIs but she is not worried about them. [facility] Medical History Cervical intraepithelial neoplasia grade III with severe dysplasia History of strep sore throat Major depressive disorder PTSD (post-traumatic stress disorder) Asthma Surgical History H/O cone biopsy of cervix Hx of tonsillectomy H/O tubal ligation Family History Paternal Grandfather Colon cancer Mother HTN (hypertension) Hyperlipidemia Depression Maternal Grandfather Lung cancer Father Asthma Paternal Grandmother Ovarian cancer Social History Alcohol intake: current Alcohol intake frequency: holidays/special occasions only Patient Tobacco Use Status: Current everyday Tobacco user Cigarettes Per Day: 6 Gender identity: Female Female Reproductive History Menstrual Age of Menarche: 12 Duration of menses: 6-7 days Date of last menstrual period: 07/17/24 control method: permanent sterilization Total pregnancies: 4 Full term: 2 Date of last pap smear: 07/31/23 (negative,2020,WNL) History of abnormal pap smear: Yes Physical Exam Vital Signs: Last Vital Signs BP 110/70 08/02/24 14:14 BMI result Body Mass Index 26.7 Const General: healthy appearing, comfortable, no acute distress, well developed and alert Nutritional Appearance: average body habitus Orientation/consciousness: patient oriented x3 Limitations: no limitations HEENT Head: Yes normocephalic Neck Neck: Yes normal visual inspection Chest Chest palpation & inspection: normal inspection of the chest Breast/axilla inspection: normal inspection of the breasts and normal inspection of the axillae Breast/axilla palpation: normal palpation of the breasts and normal palpation of the axillae Resp Effort & Inspection: normal respiratory effort GI Inspection: Yes normal to inspection, No Abdominal wall edema and No distended Palpation (GI): Soft to palpation and nontender Other: There was a creamy sticky white discharge consistent with luteal phase. It did not claim to the vaginal mucosa and was easily wiped away with the swabs. Her cervix is markedly scarred status post LEEP. Cervix is otherwise nontender with the exam uterus midposition adnexa nontender good tone Kegel. General: Yes bladder normal to palpation External Female Exam: normal external appearance and normal appearance of the urethra Speculum Exam - Vagina: normal appearance of the vagina, normal palpation and normal vaginal discharge Speculum Exam - Cervix: abnormal appearance of the cervix, normal palpation and nontender Bimanual exam- vagina & uterus: normal bimanual exam, normal palpation, uterine size normal, bladder normal to palpation, consistency normal, normal palpation, uterine mobility normal, uterine shape normal, No Cervical tenderness present, non-tender and no cervical motion tenderness Bimanual Exam- Adnexa, other: normal adnexae, no masses, normal and No adnexal tenderness Neuro General: patient oriented x3 Results Reviewed Results Reviewed: Name: Jolene Avery Age/Sex: 33/F Attending: Miranda Patel CNM : 1990 Submitted by: Miranda Patel CNM Copies to: ALEXANDER NAVARRETE POWER BALLAST MACHINE OPERATOR MR #: [id number] Status: DEP REF Collected: 07/31/23 Location: [facility] [place] Received: 08/01/23 Interpretation Satisfactory for evaluation. Negative for intraepithelial lesion or malignancy. Coccobacilli consistent with shift in vaginal wilber. HPV mRNA E6/E7: NOT DETECTED This assay detects E6/E7 viral messenger RNA (mRNA) from 14 high-risk HPV types (16, 18, 31, 33, 35, 39, 45, 51, 52, 56, 58, 59, 66, 68) HPV testing performed by [facility], [place], [place]. See reference laboratory portion of the EMR for entire report. Clinical Information LMP: 07/13/23 Previous PAP test: 10/14, Abnormal Other surgery: 02/11 LEEP TEJA III Material Received ThinPrep-Cervical Copies To ALEXANDER NAVARRETE NP [address] [place], [place] [id number] Miranda Patel CNM [address] [place] [address] [place] [address] Electronically Signed By: Earline Santizo 08/17/23 8600 The Pap Test is a screening procedure with the inherent possibility of both false negative and false positive results. Results should be interpreted in the context of historic and current clinical findings. Reliability of the Pap Test is enhanced by performing the test on a regular repetitive basis. Patient: Jolene Avery Age/Sex: 33/F MR#: [id number] Page 1 of 1 Assessment & Plan Assessment & Plan (1) Problematic vaginal discharge: Code(s): N89.8 - Other specified noninflammatory disorders of vagina Category: Medical (2) Cervical intraepithelial neoplasia grade III with severe dysplasia: Comment: 07/31/2023 Pap is negative with negative HPV. Code(s): D06.9 - Carcinoma in situ of cervix, unspecified Category: Medical (3) Hx of cervical biopsy: Comment: cold knife cervical cone biopsy 02/08/21, w return to or for bleeding Code(s): Z98.890 - Other specified postprocedural states Category: Surgical (4) Potential exposure to STD: Code(s): Z20.2 - Contact with and (suspected) exposure to infections with a predominantly sexual mode of transmission Category: Medical (5) Well woman exam with routine gynecological exam: Code(s): Z01.419 - Encounter for gynecological examination (general) (routine) without abnormal findings Category: Medical (6) Bacterial vaginosis: Code(s): N76.0 - Acute vaginitis; B96.89 - Other specified bacterial agents as the cause of diseases classified elsewhere Category: Medical Plan -----Discussed in this visit the following: healthy balanced diet, regular and consistent exercise, getting recommended health screens, doing the best she can for her particular health concerns, kegel exercises, pap smear screening and followup recommendations, mammography screening and SBE, normal changes in cycles in her life stage--- . Discussed the bacterial vaginosis in some detail. It definitely is worse for her symptom bowman after having sex she says her partner where a condom or at least it is not comfortable for her as well. She does not really enjoy it so she does not have sex that often. Discussed the possible usefulness of boric acid capsules consider using 1 after sex see if it makes a difference. Also I am prescribing metronidazole gel for her judicial use when she is very convinced that she has a another recurrence of BV that is not relieved with simple measures. Pap was done as well as testing for STIs. RTC 1 year Also discussed other challenges she feels like she has sweats a lot discussed clothing fabric choices she does wear a lot a nylon and her sheets turn fact made of nylon suggested that this is probably the major culprit. Medications: New metronidazole 0.75%(37.5mg/5gram) 1 appful vaginal BID 5 days 1 kit 4RF Coding Level of Care Code Est Pt Prev Care 18-39y(37135) Diagnoses Problematic vaginal discharge N89.8 Cervical intraepithelial neoplasia grade III with severe dysplasia D06.9 Hx of cervical biopsy Z98.890 Potential exposure to STD Z20.2 Well woman exam with routine gynecological exam Z01.419 Bacterial vaginosis N76.0; B96.89
== END 2024-08-02 15:08 | disposition home or self-care (01) ==
PROVIDERS: PCP Nurse Practitioner Family; Visit Provider Advanced Practice Midwife
DX: Z01.419 Encounter for gynecological examination (general) (routine) without abnormal findings (principal); N89.8 Other specified noninflammatory disorders of vagina; D06.9 Carcinoma in situ of cervix, unspecified; Z98.890 Other specified postprocedural states; Z20.2 Contact with and (suspected) exposure to infections with a predominantly sexual mode of transmission; N76.0 Acute vaginitis; B96.89 Other specified bacterial agents as the cause of diseases classified elsewhere
CPT/HCPCS: 99395

== ENCOUNTER 2024-08-02 13:53 | Outpatient (REF) | payer OTHER, SELFPAY ==
[2024-08-03 07:19] LABS: CT PCR NOT DETECTED (Not Detect.); NG PCR NOT DETECTED (Not Detect.)
[2024-08-03 10:43] LABS: Bacterial Vaginosis PCR POSITIVE (Negative); Candida Group PCR NOT DETECTED (Not Detect); Candida glab krusei PCR NOT DETECTED (Not Detect); Trichomonas vaginalis PCR NOT DETECTED (Not Detect)
[2024-08-06 03:03] LABS: HPV 16 RNA NOT DETECTED (NOT DETECTED); HPV mRNA E6/E7 Detected (Not Detected)
== END 2024-08-02 13:54 | disposition home or self-care (01) ==
LOC: HO.LAB 13:53
PROVIDERS: PCP Nurse Practitioner Family; Visit Provider Advanced Practice Midwife
DX: Z01.419 Encounter for gynecological examination (general) (routine) without abnormal findings (principal); Z20.2 Contact with and (suspected) exposure to infections with a predominantly sexual mode of transmission; D06.9 Carcinoma in situ of cervix, unspecified; B96.89 Other specified bacterial agents as the cause of diseases classified elsewhere; N76.0 Acute vaginitis
CPT/HCPCS: 0352U; 36415; 87491; 87591; 87624; 87625; 88175; 99395

== ENCOUNTER 2024-09-14 09:53 | Outpatient (AMB) | payer OTHER, SELFPAY ==
[2024-09-14 10:18] VITALS: BMI 26.6
--- NOTE | 2024-09-14 10:18 | MHC.OFFVIS ---
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 Information Interpreted: non-clinical & clinical Transonic Engineer: Transonic Engineer Present (Son lacho PITTS) Accompanied by: Self / Same As Patient Allergies ENVIRONMENTAL Allergy (Intermediate, Uncoded 09/14/24 10:19) WATERY ITCHY EYES AND TRIGERS ASHTMA HPI Comments Details: Presenting for colposcopy for Pap smear negative/HPV E6 E7 positive [facility] Medical History (Updated 09/14/24 @ 10:23 by Jeremiah Vyas MD) Cervical intraepithelial neoplasia grade III with severe dysplasia History of strep sore throat Major depressive disorder PTSD (post-traumatic stress disorder) Asthma Surgical History H/O cone biopsy of cervix Hx of tonsillectomy H/O tubal ligation Family History Paternal Grandfather Colon cancer Mother HTN (hypertension) Hyperlipidemia Depression Maternal Grandfather Lung cancer Father Asthma Paternal Grandmother Ovarian cancer Social History Alcohol intake: current Alcohol intake frequency: holidays/special occasions only Patient Tobacco Use Status: Current everyday Tobacco user Cigarettes Per Day: 6 Gender identity: Female Female Reproductive History Menstrual Age of Menarche: 12 Physical Exam Vital Signs: BMI result Body Mass Index 26.6 Office Procedures Colposcopy Colposcopy: Pre-Procedure Counseling: Before beginning the procedure, I conducted comprehensive counseling with the patient. We thoroughly discussed the procedure itself, including its details, alternatives, and all associated risks. This included but not limited to the following complications such as bleeding, infection, and injury to the vagina, bladder, and vessels, as well as the potential need for transfusion with all its associated risks. Subsequently, the patient sign the consent. Pap smear result: Pap negative/HPV positive, history of TEJA 3 status post LEEP with positive margins Urine test in office = Negative Procedure: During the procedure, the following steps were performed: A speculum was inserted, and acetic acid was applied. Colposcopy was conducted, allowing visualization of the transformation zone. Acetowhite lesions were identified at the 4+5+1 o'clock position. Cervical biopsies were obtained from the 4+5+1 o'clock position, followed by an endocervical curettage (ECC). Vaginoscopy of the upper vagina revealed no evidence of aceto-white lesions. Hemostasis was achieved using Monsel solution, and the patient tolerated the procedure well. Post-Procedure Instructions: The patient was advised to promptly contact the office or the after hours answering service or go to the emergency room if experiencing a temperature exceeding 100.4?F, abdominal pain, nausea/vomiting, or bleeding. Additionally, the patient was instructed to abstain from vaginal intercourse and bathtub use. The patient confirmed understanding of these instructions. Discharge Instructions: The patient was instructed to schedule a follow-up appointment in 2 weeks for further evaluation and management. Please note that this note was generated using a voice recognition program, and errors may have occurred during retail stock clerk. 14693-[id number] of cervix including upper vagina with biopsy and ECC Procedure code (CPT) selection complete Results AMB Test Urine AMB Test Urine Negative Last Edit by Ramona Vu CMA on 09/14/24 10:19 Results Reviewed Results Reviewed: Laboratory Last Values [facility] Negative 09/14/24 10:18 Assessment & Plan Assessment & Plan (1) HPV in female: Comment: Pap negative History of TEJA 3 in 12/14 status post LEEP cone with positive margins followed by negative co testing in 08/16 Code(s): B97.7 - Papillomavirus as the cause of diseases classified elsewhere Category: Medical Plan: Discussed with the patient the result of her pap/HPV positive, its significance, risk of progression, persistence, and regression. the false positive/negative rate of a Pap smear as a screening test in detecting cervical cancer and the indication for a diagnostic test -colposcopy, biopsy, endocervical curettage. All questions answered, the patient verbalized understanding. Colpo/biopsy/ECC done, see procedure note Orders: Orders AMB HCG Urine Test Today Z32.02 - Encounter for test, result negative AMB Colposcopy Today B97.7 - Papillomavirus as the cause of diseases classified elsewhere Coding Level of Care Code Procedure Only Diagnoses HPV in female B97.7 CPT Codes Colposcopy - CPT: 46196-Fobebeejf of cervix including upper vagina with biopsy and ECC ([id number])
== END 2024-09-14 10:50 | disposition home or self-care (01) ==
PROVIDERS: PCP Nurse Practitioner Family; Visit Provider Obstetrics & Gynecology
DX: R87.810 Cervical high risk human papillomavirus (HPV) DNA test positive (principal); Z32.02 Encounter for pregnancy test, result negative
CPT/HCPCS: 57454

== ENCOUNTER 2024-09-14 09:53 | Outpatient (REF) | payer OTHER, SELFPAY | END 2024-09-14 09:54 | disposition home or self-care (01) | LOC: HO.LNP 09:53 | PROVIDERS: PCP Nurse Practitioner Family; Visit Provider Obstetrics & Gynecology | DX: B97.7 Papillomavirus as the cause of diseases classified elsewhere (principal); Z32.02 Encounter for pregnancy test, result negative | CPT/HCPCS: 57454; 81025; 88305 ==

== ENCOUNTER 2024-10-12 08:52 | Outpatient (AMB) | payer OTHER, SELFPAY ==
--- NOTE | 2024-10-12 08:57 | A.OFFVIS_ITS ---
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 The patient is doing well with no complaints. The pathology showed the following: A. Endocervix, curettage: - Small fragments of endocervical mucosa and squamous epithelium within normal limits. - Small fragment with features of benign endometrium. B. Cervix, 1 o'clock, biopsy: Squamous mucosa within normal limits; no endocervical epithelium identified. C. Cervix, 4 o'clock, biopsy: Squamous mucosa within normal limits; no endocervical epithelium identified. D. Cervix, 5 o'clock, biopsy: Squamous epithelium within normal limits; no endocervical epithelium identified [facility] Medical History Cervical intraepithelial neoplasia grade III with severe dysplasia History of strep sore throat Major depressive disorder PTSD (post-traumatic stress disorder) Asthma Surgical History H/O cone biopsy of cervix Hx of tonsillectomy H/O tubal ligation Family History Paternal Grandfather Colon cancer Mother HTN (hypertension) Hyperlipidemia Depression Maternal Grandfather Lung cancer Father Asthma Paternal Grandmother Ovarian cancer Social History Alcohol intake: current Alcohol intake frequency: holidays/special occasions only Patient Tobacco Use Status: Current everyday Tobacco user Cigarettes Per Day: 6 Gender identity: Female Female Reproductive History Menstrual Age of Menarche: 12 Review of Systems Const All systems reviewed & are unremarkable except as noted in HPI and below Reports as per HPI and Reports no additional complaints GI Reports no additional complaints Reports no additional complaints Assessment & Plan Assessment & Plan (1) HPV in female: Comment: Pap negative History of TEJA 3 in 12/14 status post LEEP cone with positive margins followed by negative co testing in 08/16 Code(s): B97.7 - Papillomavirus as the cause of diseases classified elsewhere Category: Medical Plan: Discussed with the patient the pathology results of the colposcopy biopsies & endocervical curettage ( negative). Discussed with the patient the sensitivity specificity, positive and negative predictive value in detecting cervical cancer in addition discussed the regression, persistence and progression rates. Recommended co-testing in 12 months, if cytology and or HPV are abnormal will proceed was colposcopy biopsy and endocervical curettage. Instructions given to the patient to schedule a co test appointment in 1 year. All questions answered the patient verbalized understanding. Coding Level of Care Code Est Pt Level 3 (81860) Diagnoses HPV in female B97.7
== END 2024-10-12 09:11 | disposition home or self-care (01) ==
PROVIDERS: PCP Nurse Practitioner Family; Visit Provider Obstetrics & Gynecology
DX: R87.810 Cervical high risk human papillomavirus (HPV) DNA test positive (principal)
CPT/HCPCS: 99213

== ENCOUNTER → 2024-10-12 08:52 | Outpatient (BNVA) | payer OTHER, SELFPAY | PROVIDERS: PCP Nurse Practitioner Family; Visit Provider Obstetrics & Gynecology | DX: B97.7 Papillomavirus as the cause of diseases classified elsewhere (principal) | CPT/HCPCS: 99212 ==